=== PATIENT | male | born 1935 | race Caucasian/White ===

== ENCOUNTER 2017-03-24 16:01 | Emergency (ER) | payer MEDICARE, MEDICAID ==
--- NOTE | 2017-03-24 16:25 | EDM.PDOC ---
ED HPI GENERAL MEDICAL PROBLEM - General Chief Complaint: Cardiovascular Problem Stated Complaint: [facility] Time Seen by Provider: 03/24/17 16:19 Source of Information: Reports: Patient History Limitations: Reports: No Limitations - History of Present Illness INITIAL COMMENTS - FREE TEXT/NARRATIVE: 81-year-old male attends the ED per ambulance from [place]. Patient's blood pressure apparently was markedly elevated at home on several occasions today. He states or 4 days ago was in the 130s systolically. Today it's been as high as 205/106. He states no changes in his medications of been made. Multiple checkups today revealed the blood pressure be running around 200 systolically. He denies having a headache or feeling off kilter or balance. No nausea no vomiting. His last blood pressure medicine was changed and August last year when his lisinopril was doubled from 20-41 g per day. He does appreciate a daily chronic cough likely from the lisinopril. Blood pressure on arrival here is 160/85. Onset: Today Onset Date: 03/23/17 (Pressure was noted to be elevated yesterday to much higher than normal in the 175-185 range systolically.) Duration: Hour(s):, Getting Worse Location: Reports: Other (Elevated blood pressure without any other symptoms.) Quality: Reports: Ache, Other (No symptoms.) Severity: Moderate Improves with: Reports: None Worsens with: Reports: None Context: Denies: Activity, Exercise, Lifting, Sick Contact, Trauma, Other Associated Symptoms: Denies: No Other Symptoms, Confusion, Chest Pain, Cough, cough w sputum, Diaphoresis, Fever/Chills, Headaches, Loss of Appetite, Malaise , Nausea/Vomiting, Rash, Seizure, Shortness of Breath, Syncope Treatments MANAGER INTELLIGENCE: Reports: Other (see below) (He has not taken any extra medications.) - Related Data Allergies Allergy/AdvReac Type Severity Reaction Status Date / Time No Known Allergies Allergy Verified 03/24/17 16:04 Home Meds: Home Meds Levothyroxine Sodium [Synthroid] 75 mcg PO DAILY 05/27/16 [History] Metoprolol Tartrate 50 mg PO BID 05/27/16 [History] Omeprazole Magnesium [Prilosec Otc] 20 mg PO DAILY 05/27/16 [History] amLODIPine Besylate [Amlodipine Besylate] 5 mg PO BID 05/27/16 [History] Acetaminophen [Tylenol Extra Strength] 1,000 mg PO TID PRN 08/23/16 [History] Iron Ps Cmplx/Vit B12/Fa [Poly-Iron 150 Forte] 1 cap PO DAILY 08/23/16 [History] Lutein Extract/Zeaxanthin Ext [Lutein 15 MG Softgel] 1 cap PO DAILY 08/23/16 [ History] Methyl Salicylate/Menthol [Thera-Gesic Analgesic] 1 applic TOP BID PRN 08/23/16 [History] Doxazosin Mesylate [Cardura XL] 4 mg PO DAILY #30 tab.er.24 03/24/17 [Rx] Lisinopril [Prinivil] 40 mg PO DAILY 03/24/17 [History] Past Medical History HEENT History: Reports: Impaired Vision Other HEENT History: Has hearing aides but does not wear Cardiovascular History: Reports: Heart Valve Replacement (Aortic valve was replaced I believe in 2003. He did not require any bypasses.), High Cholesterol , Hypertension Gastrointestinal History: Reports: GERD Musculoskeletal History: Reports: Arthritis, Osteoarthritis, Other (See Below) Other Musculoskeletal History: arthritis in shoulders Endocrine/Metabolic History: Reports: Hypothyroidism Hematologic History: Reports: Anemia, Blood Transfusion(s) - Infectious Disease History 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: MRSA - Past Surgical History HEENT Surgical History: Reports: Cataract Surgery Cardiovascular Surgical History: Reports: Other (See Below) GI Surgical History: Reports: Cholecystectomy, Hernia, Inguinal Social & Family History - Family History Family Medical History: Noncontributory Oncologic: Reports: Bladder, Breast, Colon, Other (See Below) - Tobacco Use Smoking Status *Q: Former Smoker Years of Tobacco use: 16 Used Tobacco, but Quit: No Month Tobacco Last Used: 58 yrs Second Hand Smoke Exposure: No - Caffeine Use Caffeine Use: Reports: Coffee - Recreational Drug Use Recreational Drug Use: No - Living Situation & Occupation Living situation: Reports: , with Family ED ROS GENERAL - Review of Systems Review Of Systems: See Below Constitutional: Denies: Fever, Chills, Malaise, Weakness, Fatigue, Night Sweats , Diaphoresis, Decreased Appetite, Weight Loss HEENT: Reports: Glasses, Hearing Loss (Does have some hearing loss but communicates well.). Denies: Contact Lenses Respiratory: Reports: Shortness of Breath, Cough (Has some COPD.). Denies: Wheezing, Pleuritic Chest Pain, Sputum, Hemoptysis ( Chronic nonproductive cough.), Other Cardiovascular: Reports: Blood Pressure Problem (Has chronic hypertension but usually well controlled with current medications.), Dyspnea on Exertion. Denies : No Symptoms, Claudication, Lightheadedness, Orthopnea, Palpitations ( Chronically) Endocrine: Denies: Fatigue, High Glucose, Low Glucose, Polydypsia GI/Abdominal: Reports: Constipation (Occasional problems with constipation). Denies: Abdominal Pain : Reports: Frequency, Other (Known prostate hypertrophy.) Musculoskeletal: Reports: Back Pain, Joint Pain Skin: Reports: No Symptoms (Knees hips and neck.) Neurological: Reports: No Symptoms Psychiatric: Reports: No Symptoms Hematologic/Lymphatic: Reports: No Symptoms Immunologic: Reports: No Symptoms ED EXAM, GENERAL - Physical Exam Exam: See Below Exam Limited By: No Limitations General Appearance: Alert, WD/WN, No Apparent Distress Eye Exam: Bilateral Eye: Normal Inspection, PERRL Throat/Mouth: Normal Inspection, Normal Lips, Normal Oropharynx Head: Atraumatic, Normocephalic Neck: Normal Inspection, Full Range of Motion, Limited Range of Motion, Tender Lateral. No: Lymphadenopathy (L), Lymphadenopathy (R) Respiratory/Chest: No Respiratory Distress, Lungs Clear, Normal Breath Sounds, Decreased Breath Sounds Cardiovascular: Regular Rate, Rhythm, No Gallop, Systolic Murmur (Grade 1 or less systolic ejection murmur heard best at the aortic listening post.). No: Normal Peripheral Pulses GI/Abdominal: Normal Bowel Sounds, Soft, Non-Tender, No Organomegaly, No Distention Extremities: Pedal Edema (Trace edema in his lower extremities.) Neurological: Alert, Oriented ( Pulses are barely palpable in his feet.), CN II- XII Intact, Normal Cognition Psychiatric: Normal Affect, Normal Mood Skin Exam: Warm, Dry, Intact, Normal Color, No Rash Course - Vital Signs Last Recorded V/S: Last Vital Signs Temp 36.4 C 03/24/17 16:04 Pulse 70 03/24/17 18:43 Resp 18 03/24/17 18:43 BP 173/69 H 03/24/17 18:43 Pulse Ox 95 03/24/17 18:43 - Orders/Labs/Meds Labs: Laboratory Tests 03/24/17 03/24/17 Range/Units 16:49 16:49 WBC 6.50 (4.23-9.07) K/mm3 RBC 3.41 L (4.63-6.08) M/mm3 Hgb 10.1 L (13.7-17.5) gm/L Hct 29.5 L (40.1-51.0) % MCV 86.5 (79.0-92.2) fl MCH 29.6 (25.7-32.2) pg MCHC 34.2 (32.2-35.5) g/dl RDW Std Deviation 42.9 (35.1-43.9) fL Plt Count 303 (163-337) K/mm3 MPV 8.3 L (9.4-12.3) fl Neutrophils % (Manual) 83 H (40-60) % Band Neutrophils % 0 (0-10) % Lymphocytes % (Manual) 16 L (20-40) % Atypical Lymphs % 0 % Monocytes % (Manual) 1 L (2-10) % Eosinophils % (Manual) 0 L (0.8-7.0) % Basophils % (Manual) 0 L (0.2-1.2) Platelet Estimate Adequate RBC Morph Comment Normal Sodium 129 L (136-145) mEq/L Potassium 5.2 H (3.5-5.1) mEq/L Chloride 93 L (98-107) mEq/L Carbon Dioxide 24 (21-32) mEq/L Anion Gap 17.2 H (5-15) BUN 22 H (7-18) mg/dL Creatinine 1.5 H (0.7-1.3) mg/dL Est Cr Clr Drug Dosing 34.85 mL/min Estimated GFR (MDRD) 45 (>60) mL/min BUN/Creatinine Ratio 14.7 (14-18) Glucose 110 (83-115) mg/dL Calcium 8.3 L (8.5-10.1) mg/dL Total Bilirubin 0.3 (0.2-1.0) mg/dL AST 19 (15-37) U/L ALT 13 L (16-63) U/L Alkaline Phosphatase 70 (46-116) U/L C-Reactive Protein 5.3 H* (<1.0) mg/dL Total Protein 7.4 (6.4-8.2) g/dl Albumin 3.4 (3.4-5.0) g/dl Globulin 4.0 gm/dL Albumin/Globulin Ratio 0.9 L (1-2) - Radiology Interpretation Free Text/Narrative:: 81-year-old male presents to the ED due to uncontrolled systolic hypertension. His blood pressures been over 205 systolically the last day or 2. However when he arrives here his blood pressure was 160/85. Therefore were going to adopt a wait and see approach heart rate is in the 80s in sinus rhythm. No changes have been recently made to any of his medications. He will have routine lab work done including his renal function. He had tends to run a low hemoglobin. Currently his hemoglobin clinically is probably around 12. - Re-Assessments/Exams Free Text/Narrative Re-Assessment/Exam: 03/24/17 17:21 Blood pressure is quite labile. Currently 180/87 with a pulse of 72. His ECG initially revealed sinus rhythm at 70/m with frequent PACs. There is a borderline left axis deviation at -21 but no signs of ischemia. 03/24/17 18:17 blood pressure is labile highest regard in the ED was up to 184. It is staying on average between 160 02/10/74. Bottom number is staying good below 75 . Looking at his labs his sodium is 129 and potassium is 5.2 chloride 93 bicarbonate 24 and a gap is 17.2 indicating is low on the dry side today the weight is 22 creatinine is 1.5 EGFR is 45. Hemoglobin is 10.1. Total white count 6.50 with 83% neutrophils and no bands. Hematocrit is 29.5 platelets 303, 000. Advised him to back off on the sodium restriction as there quite both him and his are hypo-need treatment. Advised to go to drink more juices and not just water has about 3 cups of coffee per day. Potassium is 5.2 and likely from lisinopril. Therefore going to cut the lisinopril back to 20 mg a day and hopefully this will help his chronic cough if he continues to cough longer than a month and change to a different arm is indicated. Adjust valsartan 160 mg a day. I am going to add doxazosin 4 mg once daily to his treatment plan and have him take the amlodipine 10 mg once daily rather than cutting it in half. I'm hopeful this will start to bring his blood pressure under better control as all of these medications last about 24 hours. He will continue his metoprolol as well. Departure - Departure Time of Disposition: 18:19 Disposition: Home, Self-Care 01 Condition: Fair Clinical Impression: Labile essential hypertension Prescriptions: Doxazosin Mesylate [Cardura XL] 4 mg PO DAILY #30 tab.er.24 Instructions: Hypertension Referrals: Jonatan Dumas PA-C [Primary Care Provider] - Forms: ED Department Discharge Additional Instructions: Evaluation in the emergency room today in regards to labile high blood pressure. This means that the top number particularly is going up and down like a roller coaster. Numbers at home were over 200 in her the highest was 180. On averages between 174 and 164 on the top number which is still a bit too high. Lab work showed the potassium was bit on the high side at 5.2 and this is due to the lisinopril. Lisinopril therefore needs to be cut back to 20 mg once daily. If you have the 40 mg tablets cut them in half and take a half or 1 daily until they're gone and then the new prescription will be for 20 mg daily. Take a full tablet of amlodipine 10 mg at bedtime. Don't cut it in half anymore. No medication is called doxazosin and it should be taken once a day in the morning with your other medications. I will follow with this medication change will help lessen her chronic cough. If the light if the lisinopril cut back does not make her cough go away completely then the lisinopril could be discontinued completely and replaced with a new medication. Continue to follow your blood pressure at home over the next few weeks and follow-up in the clinic in 2 weeks' time. All of today's notes will be sent to the clinic in [place].
[2017-03-24 18:45] VITALS: BP 173/69
== END 2017-03-24 18:43 | disposition home or self-care (01) ==
LOC: JD.ED 16:01
DX: I10 Essential (primary) hypertension (principal); E78.00 Pure hypercholesterolemia, unspecified; K21.9 Gastro-esophageal reflux disease without esophagitis; M19.90 Unspecified osteoarthritis, unspecified site; E03.9 Hypothyroidism, unspecified; D64.9 Anemia, unspecified; Z98.49 Cataract extraction status, unspecified eye; Z90.49 Acquired absence of other specified parts of digestive tract; Z98.890 Other specified postprocedural states; Z79.899 Other long term (current) drug therapy; Z87.891 Personal history of nicotine dependence
CPT/HCPCS: 36415; 80053; 85025; 86140; 93005; 99283; 99284-25

== ENCOUNTER 2019-02-10 19:38 | Emergency (ER) | payer MEDICARE ==
[2019-02-10 19:44] VITALS: BP 180/81
[2019-02-10] MEDS ORDERED: Sodium Chloride 0.9% 10 ML Syringe FLUSH PRN (19:56)
--- NOTE | 2019-02-10 20:04 | EDM.PDOC ---
ED HPI GENERAL MEDICAL PROBLEM - General Chief Complaint: Cardiovascular Problem Stated Complaint: [facility] Time Seen by Provider: 02/10/19 19:43 Source of Information: Reports: Patient, EMS History Limitations: Reports: No Limitations - History of Present Illness INITIAL COMMENTS - FREE TEXT/NARRATIVE: The patient was at home tonight and he was sitting on the edge of his bed changing his clothes. He got up and got dizzy. He sat down in his chair and felt like his heart was racing. He called [facility] and they transferred him here. His heart is not racing anymore and he is not dizzy. He had no chest pain or shortness of breath. He has no fever, chills, cough, congestion, runny nose, abdominal pain, nausea or vomiting He has no dysuria. He had a valve replaced 6 years ago. He has had no problems since then. He has never had a racing heart like this before. Onset: Sudden Duration: Minutes: Severity: Moderate Improves with: Reports: None Worsens with: Reports: None Associated Symptoms: Reports: No Other Symptoms - Related Data Allergies Allergy/AdvReac Type Severity Reaction Status Date / Time No Known Allergies Allergy Verified 02/10/19 19:45 Home Meds: Home Meds Levothyroxine Sodium [Synthroid] 75 mcg PO DAILY 05/27/16 [History] Metoprolol Tartrate 50 mg PO BID 05/27/16 [History] Omeprazole Magnesium [Prilosec Otc] 20 mg PO DAILY 05/27/16 [History] amLODIPine Besylate [Amlodipine Besylate] 5 mg PO BID 05/27/16 [History] Doxazosin Mesylate [Cardura XL] 4 mg PO DAILY #30 tab.er.24 03/24/17 [Rx] Lisinopril/Hydrochlorothiazide [Lisinopril-Hctz 20-25 mg Tab] 1 tab PO DAILY 10/31 [History] Past Medical History HEENT History: Reports: Impaired Vision Other HEENT History: Has hearing aides but does not wear Cardiovascular History: Reports: Heart Valve Replacement, High Cholesterol, Hypertension Gastrointestinal History: Reports: GERD Musculoskeletal History: Reports: Arthritis, Osteoarthritis, Other (See Below) Other Musculoskeletal History: arthritis in shoulders Endocrine/Metabolic History: Reports: Hypothyroidism Hematologic History: Reports: Anemia, Blood Transfusion(s) - Infectious Disease History 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: MRSA - Past Surgical History HEENT Surgical History: Reports: Cataract Surgery Cardiovascular Surgical History: Reports: Other (See Below) GI Surgical History: Reports: Cholecystectomy, Hernia, Inguinal Social & Family History - Family History Family Medical History: Noncontributory Oncologic: Reports: Bladder, Breast, Colon, Other (See Below) - Tobacco Use Smoking Status *Q: Former Smoker Used Tobacco, but Quit: Yes Month/Year Tobacco Last Used: 50 years - Caffeine Use Caffeine Use: Reports: Coffee - Recreational Drug Use Recreational Drug Use: No - Living Situation & Occupation Living situation: Reports: , with Family ED ROS GENERAL - Review of Systems Review Of Systems: See Below Constitutional: Reports: No Symptoms HEENT: Reports: No Symptoms Respiratory: Reports: No Symptoms Cardiovascular: Reports: Palpitations. Denies: Chest Pain Endocrine: Reports: No Symptoms GI/Abdominal: Reports: No Symptoms : Reports: No Symptoms Musculoskeletal: Reports: No Symptoms ED EXAM, GENERAL - Physical Exam Exam: See Below Exam Limited By: No Limitations General Appearance: Alert, No Apparent Distress Ears: Normal External Exam Nose: Normal Inspection Head: Atraumatic, Normocephalic Neck: Normal Inspection Respiratory/Chest: No Respiratory Distress, Lungs Clear, Normal Breath Sounds Cardiovascular: Regular Rate, Rhythm, No Edema, Systolic Murmur GI/Abdominal: Soft, Non-Tender, No Organomegaly, No Mass Back Exam: Normal Inspection Extremities: Normal Inspection Neurological: Alert, Oriented, No Motor/Sensory Deficits EKG INTERPRETATION EKG Date: 02/10/19 Time: 20:07 Rhythm: NSR Rate (Beats/Min): 93 Davis: LAD-Left Davis Deviation P-Wave: Present QRS: Normal ST-T: Normal QT: Normal WV/PQ Interval: 1st degree HB Course - Vital Signs Last Recorded V/S: Last Vital Signs Temp 97.2 F 02/10/19 19:41 Pulse 84 02/10/19 19:41 Resp 18 02/10/19 19:41 BP 180/81 H 02/10/19 19:41 Pulse Ox 98 02/10/19 19:41 - Orders/Labs/Meds Orders: Active Orders 24 hr Category Date Time Status Cardiac Monitoring [RC] . DIRECTED Care 02/10/19 19:56 Active EKG Documentation Completion [RC] STAT Care 02/10/19 19:58 Active Holter Monitor 48 Hours [RC] .PRN Care 02/10/19 21:50 Ordered Peripheral IV Care [RC] . DIRECTED Care 02/10/19 19:58 Active Chest 1V Frontal [CR] Stat Exams 02/10/19 19:58 Taken Sodium Chloride 0.9% [Saline Flush] Med 02/10/19 19:56 Active 10 ml FLUSH ASDIRECTED PRN Peripheral IV Insertion Adult [OM.PC] Stat Oth 02/10/19 19:56 Ordered Medication Orders Sodium Chloride (Saline Flush) 10 ml FLUSH ASDIRECTED PRN PRN Reason: Keep Vein Open Last Admin: 02/10/19 20:20 Dose: 10 ml Labs: Laboratory Tests 02/10/19 02/10/19 Range/Units 20:15 20:15 WBC 5.09 (4.23-9.07) K/mm3 RBC 3.76 L (4.63-6.08) M/mm3 Hgb 11.2 L (13.7-17.5) gm/L Hct 32.0 L (40.1-51.0) % MCV 85.1 (79.0-92.2) fl MCH 29.8 (25.7-32.2) pg MCHC 35.0 (32.2-35.5) g/dl RDW Std Deviation 40.8 (35.1-43.9) fL Plt Count 237 (163-337) K/mm3 MPV 8.2 L (9.4-12.3) fl Neut % (Auto) 79.7 H (34.0-67.9) % Lymph % (Auto) 11.0 L (21.8-53.1) % Dickey % (Auto) 7.5 (5.3-12.2) % Eos % (Auto) 1.6 (0.8-7.0) Baso % (Auto) 0.2 (0.1-1.2) % Neut # (Auto) 4.06 (1.78-5.38) K/mm3 Lymph # (Auto) 0.56 L (1.32-3.57) K/mm3 Dickey # (Auto) 0.38 (0.30-0.82) K/mm3 Eos # (Auto) 0.08 (0.04-0.54) K/mm3 Baso # (Auto) 0.01 (0.01-0.08) K/mm3 Sodium 125 L (136-145) mEq/L Potassium 4.6 (3.5-5.1) mEq/L Chloride 92 L (98-107) mEq/L Carbon Dioxide 22 (21-32) mEq/L Anion Gap 15.6 H (5-15) BUN 26 H (7-18) mg/dL Creatinine 1.8 H (0.7-1.3) mg/dL Est Cr Clr Drug Dosing 28.06 mL/min Estimated GFR (MDRD) 36 (>60) mL/min BUN/Creatinine Ratio 14.4 (14-18) Glucose 114 (83-115) mg/dL Calcium 8.9 (8.5-10.1) mg/dL Total Bilirubin 0.3 (0.2-1.0) mg/dL AST 19 (15-37) U/L ALT 17 (16-63) U/L Alkaline Phosphatase 55 (46-116) U/L Troponin I < 0.017 (0.00-0.056) ng/mL Total Protein 7.3 (6.4-8.2) g/dl Albumin 3.7 (3.4-5.0) g/dl Globulin 3.6 gm/dL Albumin/Globulin Ratio 1.0 (1-2) TSH 3rd Generation 2.458 (0.358-3.74) uIU/mL Meds: Medications Generic Name Dose Route Start Last Admin Trade Name Freq PRN Reason Stop Dose Admin Sodium Chloride 10 ml 02/10/19 19:56 02/10/19 20:20 Saline Flush FLUSH 10 ml ASDIRECTED PRN Administration Keep Vein Open - Re-Assessments/Exams Free Text/Narrative Re-Assessment/Exam: 02/10/19 20:08 I ordered an IV saline lock, CXR, EKG and labs. 02/10/19 21:51 His CXR shows no acute changes. His EKG shows a NSR with no acute changes. His Hgb was a little low at 11.2. His sodium is low at 125 but in the past that is where it has been. His creatinine appears to be at his baseline at 1.8. His troponin was negative. His TSH was normal. I would like to get him on a 48 hour holter monitor and have him follow up with his provider in a week. Departure - Departure Time of Disposition: 21:55 Disposition: Home, Self-Care 01 Condition: Good Clinical Impression: Palpitations, Dizziness Referrals: Jonatan Dumas PA-C [Primary Care Provider] - 1 Week Forms: ED Department Discharge Additional Instructions: Wear the holter monitor for 48 hours. Follow up with Jonatan within a week. Try to give yourself some time when sitting up or standing up before moving. Please return if you are worse. - My Orders Last 24 Hours: My Active Orders 02/10/19 19:56 Cardiac Monitoring [RC] . DIRECTED Sodium Chloride 0.9% [Saline Flush] 10 ml FLUSH ASDIRECTED PRN Peripheral IV Insertion Adult [OM.PC] Stat 02/10/19 19:58 EKG Documentation Completion [RC] STAT Peripheral IV Care [RC] . DIRECTED Chest 1V Frontal [CR] Stat 02/10/19 21:50 Holter Monitor 48 Hours [RC] .PRN - Assessment/Plan Last 24 Hours: My Active Orders 02/10/19 19:56 Cardiac Monitoring [RC] . DIRECTED Sodium Chloride 0.9% [Saline Flush] 10 ml FLUSH ASDIRECTED PRN Peripheral IV Insertion Adult [OM.PC] Stat 02/10/19 19:58 EKG Documentation Completion [RC] STAT Peripheral IV Care [RC] . DIRECTED Chest 1V Frontal [CR] Stat 02/10/19 21:50 Holter Monitor 48 Hours [RC] .PRN
--- NOTE | 2019-02-11 06:45 | CR ---
Chest: Portable view of the chest was obtained. Comparison: Prior chest x-ray of 06/27/16. Heart size slightly prominent. Sternotomy wires are noted. Prosthetic heart valve is seen. Minimal atelectasis is seen within both lung bases. Lungs otherwise are clear. Bony structures are grossly intact. Impression: 1. Incidental findings as noted above. Nothing acute is seen. Diagnostic code #2
== END 2019-02-10 22:06 | disposition home or self-care (01) ==
LOC: JD.ED 19:38
DX: R00.2 Palpitations (principal); R42 Dizziness and giddiness; I10 Essential (primary) hypertension; K21.9 Gastro-esophageal reflux disease without esophagitis; E03.9 Hypothyroidism, unspecified; Z86.2 Personal history of diseases of the blood and blood-forming organs and certain disorders involving the immune mechanism; Z98.49 Cataract extraction status, unspecified eye; Z90.49 Acquired absence of other specified parts of digestive tract; Z79.899 Other long term (current) drug therapy; Z87.891 Personal history of nicotine dependence
CPT/HCPCS: 36415; 71045; 71045-26; 80053; 84443; 84484; 85025; 93005; 93010; 99283; 99285-25

== ENCOUNTER 2019-07-16 19:39 | Inpatient (IN) | payer MEDICARE, OTHER ==
[2019-07-16] MEDS ORDERED: Sodium Chloride 0.9% 10 ML Syringe FLUSH PRN (19:48)
--- NOTE | 2019-07-16 20:12 | EDM.PDOC ---
ED HPI GENERAL MEDICAL PROBLEM - General Chief Complaint: General Stated Complaint: [facility] Time Seen by Provider: 07/16/19 19:48 Source of Information: Reports: Patient, EMS History Limitations: Reports: No Limitations - History of Present Illness INITIAL COMMENTS - FREE TEXT/NARRATIVE: 84 y/o M with hx porcine aortic valve replacement in 2013, not on any anticoagulation, also HTN presents with episode of dizziness and aphasia. Started around 6:30pm while eating dinner with his . He suddenly felt dizzy and couldn't speak. He did not have LOC. He was able to walk with assistance to a walker. Symptoms resolved after 5 minutes. He felt fine before the incident - no recent illness or trauma. He feels normal now. No chest pain, SOB, headache, palpitations, or other symptoms today. No vision change. No longer dizzy. No weakness. No abd pain/vomiting/diarrhea. No dysuria. No lower extremity pain/ swelling. Has been compliant with his meds. Other Treatments WASTE [employer]: monitor of vital per ambulance Posterior Neck Pain Score (Numeric/FACES): 3 - Related Data Allergies Allergy/AdvReac Type Severity Reaction Status Date / Time No Known Allergies Allergy Verified 02/10/19 19:45 Home Meds: Home Meds Levothyroxine Sodium [Synthroid] 75 mcg PO DAILY 05/27/16 [History] Metoprolol Tartrate 50 mg PO BID 05/27/16 [History] Omeprazole Magnesium [Prilosec Otc] 20 mg PO DAILY 05/27/16 [History] amLODIPine Besylate [Amlodipine Besylate] 5 mg PO BID 05/27/16 [History] Doxazosin Mesylate [Cardura XL] 4 mg PO DAILY #30 tab.er.24 03/24/17 [Rx] Lisinopril 10 mg PO DAILY 07/16/19 [History] Past Medical History HEENT History: Reports: Impaired Vision Other HEENT History: Has hearing aides but does not wear Cardiovascular History: Reports: Heart Valve Replacement, High Cholesterol, Hypertension Gastrointestinal History: Reports: GERD Musculoskeletal History: Reports: Arthritis, Osteoarthritis, Other (See Below) Other Musculoskeletal History: arthritis in shoulders Endocrine/Metabolic History: Reports: Hypothyroidism Hematologic History: Reports: Anemia, Blood Transfusion(s) - Infectious Disease History 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: MRSA - Past Surgical History HEENT Surgical History: Reports: Cataract Surgery Cardiovascular Surgical History: Reports: Valve Replacement, Other (See Below) GI Surgical History: Reports: Cholecystectomy, Hernia, Inguinal Social & Family History - Family History Family Medical History: Noncontributory Oncologic: Reports: Bladder, Breast, Colon, Other (See Below) - Tobacco Use Smoking Status *Q: Former Smoker Used Tobacco, but Quit: Yes Month/Year Tobacco Last Used: 1967 - Caffeine Use Caffeine Use: Reports: Coffee, Soda - Recreational Drug Use Recreational Drug Use: No - Living Situation & Occupation Living situation: Reports: , with Family ED ROS GENERAL - Review of Systems Review Of Systems: See Below Constitutional: Denies: Fever HEENT: Reports: No Symptoms Respiratory: Denies: Shortness of Breath Cardiovascular: Denies: Chest Pain Endocrine: Reports: No Symptoms GI/Abdominal: Denies: Abdominal Pain : Reports: No Symptoms Musculoskeletal: Reports: No Symptoms Skin: Reports: No Symptoms Neurological: Reports: Dizziness Psychiatric: Reports: No Symptoms Hematologic/Lymphatic: Reports: No Symptoms Immunologic: Reports: No Symptoms ED EXAM, GENERAL - Physical Exam Exam: See Below Exam Limited By: No Limitations General Appearance: Alert, WD/WN, No Apparent Distress Eye Exam: Bilateral Eye: EOMI, Normal Inspection, PERRL, Other (no nystagmus.) Ears: Normal External Exam, Hearing Grossly Normal Nose: Normal Inspection, No Blood Throat/Mouth: Normal Inspection, Normal Oropharynx, Normal Voice, No Airway Compromise Head: Atraumatic, Normocephalic Neck: Normal Inspection, Supple Respiratory/Chest: No Respiratory Distress, Lungs Clear, Normal Breath Sounds, No Accessory Muscle Use Cardiovascular: Normal Peripheral Pulses, No Edema, No Murmur, Irregularly Irregular GI/Abdominal: Soft, Non-Tender, No Distention Extremities: Normal Inspection, No Pedal Edema Neurological: Alert, Oriented, CN II-XII Intact, Normal Cognition, No Motor/ Sensory Deficits Psychiatric: Normal Affect, Normal Mood Skin Exam: Warm, Dry, Intact, Normal Color, No Rash Course - Vital Signs Last Recorded V/S: Last Vital Signs Temp 36.3 C 07/16/19 19:44 Pulse 102 H 07/16/19 19:44 Resp 18 07/16/19 19:44 BP 178/89 H 07/16/19 19:44 Pulse Ox 97 07/16/19 19:44 - Orders/Labs/Meds Orders: Active Orders 24 hr Category Date Time Status Peripheral IV Care [RC] . DIRECTED Care 07/16/19 19:48 Active Peripheral IV Care [RC] . DIRECTED Care 07/16/19 19:49 Active Chest 1V Frontal [CR] Stat Exams 07/16/19 19:48 Taken Sodium Chloride 0.9% [Saline Flush] Med 07/16/19 19:48 Active 10 ml FLUSH ASDIRECTED PRN Peripheral IV Insertion Adult [OM.PC] Routine Oth 07/16/19 19:48 Ordered Medication Orders Sodium Chloride (Saline Flush) 10 ml FLUSH ASDIRECTED PRN PRN Reason: Keep Vein Open Last Admin: 07/16/19 20:00 Dose: 10 ml Labs: Laboratory Tests 07/16/19 07/16/19 07/16/19 Range/Units 19:55 19:55 19:55 WBC 6.04 (4.23-9.07) K/mm3 RBC 3.80 L (4.63-6.08) M/mm3 Hgb 12.1 L D (13.7-17.5) gm/dl Hct 34.2 L (40.1-51.0) % MCV 90.0 (79.0-92.2) fl MCH 31.8 (25.7-32.2) pg MCHC 35.4 (32.2-35.5) g/dl RDW Std Deviation 41.7 (35.1-43.9) fL Plt Count 214 (163-337) K/mm3 MPV 8.6 L (9.4-12.3) fl Neut % (Auto) 79.2 H (34.0-67.9) % Lymph % (Auto) 10.3 L (21.8-53.1) % [place] % (Auto) 7.3 (5.3-12.2) % Eos % (Auto) 3.0 (0.8-7.0) Baso % (Auto) 0.2 (0.1-1.2) % Neut # (Auto) 4.79 (1.78-5.38) K/mm3 Lymph # (Auto) 0.62 L (1.32-3.57) K/mm3 [place] # (Auto) 0.44 (0.30-0.82) K/mm3 Eos # (Auto) 0.18 (0.04-0.54) K/mm3 Baso # (Auto) 0.01 (0.01-0.08) K/mm3 PT 10.5 (9.7-12.0) SECONDS INR 0.96 Sodium 130 L (136-145) mEq/L Potassium 4.3 (3.5-5.1) mEq/L Chloride 97 L (98-107) mEq/L Carbon Dioxide 26 (21-32) mEq/L Anion Gap 11.3 (5-15) BUN 22 H (7-18) mg/dL Creatinine 1.5 H (0.7-1.3) mg/dL Est Cr Clr Drug Dosing 33.08 mL/min Estimated GFR (MDRD) 45 (>60) mL/min BUN/Creatinine Ratio 14.7 (14-18) Glucose 124 H (83-115) mg/dL Calcium 9.0 (8.5-10.1) mg/dL Magnesium 1.8 (1.8-2.4) mg/dl Total Bilirubin 0.2 (0.2-1.0) mg/dL AST 13 L (15-37) U/L ALT 17 (16-63) U/L Alkaline Phosphatase 59 (46-116) U/L Troponin I < 0.017 (0.00-0.056) ng/mL Total Protein 7.3 (6.4-8.2) g/dl Albumin 3.6 (3.4-5.0) g/dl Globulin 3.7 gm/dL Albumin/Globulin Ratio 1.0 (1-2) Urine Color (Yellow) Urine Appearance (Clear) Urine pH (5.0-8.0) Ur Specific [place] (1.005-1.030) Urine Protein (Negative) Urine Glucose (UA) (Negative) Urine Ketones (Negative) Urine Occult Blood (Negative) Urine Nitrite (Negative) Urine Bilirubin (Negative) Urine Urobilinogen (0.2-1.0) Ur Leukocyte Esterase (Negative) Urine RBC (0-5) /hpf Urine WBC (0-5) /hpf Ur Squamous Epith Cells (0-5) /hpf Urine Bacteria (FEW) /hpf Urine Mucus (FEW) /hpf 07/16/19 Range/Units 20:45 WBC (4.23-9.07) K/mm3 RBC (4.63-6.08) M/mm3 Hgb (13.7-17.5) gm/dl Hct (40.1-51.0) % MCV (79.0-92.2) fl MCH (25.7-32.2) pg MCHC (32.2-35.5) g/dl RDW Std Deviation (35.1-43.9) fL Plt Count (163-337) K/mm3 MPV (9.4-12.3) fl Neut % (Auto) (34.0-67.9) % Lymph % (Auto) (21.8-53.1) % [place] % (Auto) (5.3-12.2) % Eos % (Auto) (0.8-7.0) Baso % (Auto) (0.1-1.2) % Neut # (Auto) (1.78-5.38) K/mm3 Lymph # (Auto) (1.32-3.57) K/mm3 [place] # (Auto) (0.30-0.82) K/mm3 Eos # (Auto) (0.04-0.54) K/mm3 Baso # (Auto) (0.01-0.08) K/mm3 PT (9.7-12.0) SECONDS INR Sodium (136-145) mEq/L Potassium (3.5-5.1) mEq/L Chloride (98-107) mEq/L Carbon Dioxide (21-32) mEq/L Anion Gap (5-15) BUN (7-18) mg/dL Creatinine (0.7-1.3) mg/dL Est Cr Clr Drug Dosing mL/min Estimated GFR (MDRD) (>60) mL/min BUN/Creatinine Ratio (14-18) Glucose (83-115) mg/dL Calcium (8.5-10.1) mg/dL Magnesium (1.8-2.4) mg/dl Total Bilirubin (0.2-1.0) mg/dL AST (15-37) U/L ALT (16-63) U/L Alkaline Phosphatase (46-116) U/L Troponin I (0.00-0.056) ng/mL Total Protein (6.4-8.2) g/dl Albumin (3.4-5.0) g/dl Globulin gm/dL Albumin/Globulin Ratio (1-2) Urine Color Yellow (Yellow) Urine Appearance Clear (Clear) Urine pH 7.0 (5.0-8.0) Ur Specific [place] 1.015 (1.005-1.030) Urine Protein Negative (Negative) Urine Glucose (UA) Negative (Negative) Urine Ketones Negative (Negative) Urine Occult Blood 2+ H (Negative) Urine Nitrite Negative (Negative) Urine Bilirubin Negative (Negative) Urine Urobilinogen 0.2 (0.2-1.0) Ur Leukocyte Esterase 1+ H (Negative) Urine RBC 5-10 H (0-5) /hpf Urine WBC 0-5 (0-5) /hpf Ur Squamous Epith Cells 0-5 (0-5) /hpf Urine Bacteria Few (FEW) /hpf Urine Mucus Not seen (FEW) /hpf Meds: Medications Generic Name Dose Route Start Last Admin Trade Name Freq PRN Reason Stop Dose Admin Sodium Chloride 10 ml 07/16/19 19:48 07/16/19 20:00 Saline Flush FLUSH 10 ml ASDIRECTED PRN Administration Keep Vein Open Discontinued Medications Generic Name Dose Route Start Last Admin Trade Name Freq PRN Reason Stop Dose Admin Amlodipine Besylate 5 mg 07/16/19 23:15 Norvasc PO 07/16/19 23:16 ONETIME ONE Doxazosin Mesylate 4 mg 07/16/19 23:30 Cardura PO 07/16/19 23:31 BEDTIME ONE Metoprolol Tartrate 50 mg 07/16/19 23:30 Lopressor PO 07/16/19 23:31 ONETIME ONE - Re-Assessments/Exams Free Text/Narrative Re-Assessment/Exam: 07/16/19 20:11 EKG shows a-fib, rate 94, intervals normal, minimal ST depression anteriolateral leads, no ST elevation. No recent prior available for comparison. 07/17/19 00:42 Labs are largely unremarkable. Sodium 130, baseline unknown. Trop neg. LFT's normal. Discussed with Dr. Roshan Friend who agrees to admit for observation given possible TIA and new onset a-fib. Will give evening dose of anti-hypertensives which includes metoprolol. His rate has been controlled without intervention. Departure - Departure Time of Disposition: 09:45 Disposition: Refer to Observation Clinical Impression: TIA (transient ischemic attack) Atrial fibrillation Qualifiers: Atrial fibrillation type: unspecified Qualified Code(s): I48.91 - Unspecified atrial fibrillation - Discharge Information - My Orders Last 24 Hours: My Active Orders 07/16/19 19:48 Peripheral IV Care [RC] . DIRECTED Chest 1V Frontal [CR] Stat Sodium Chloride 0.9% [Saline Flush] 10 ml FLUSH ASDIRECTED PRN Peripheral IV Insertion Adult [OM.PC] Routine 07/16/19 19:49 Peripheral IV Care [RC] . DIRECTED - Assessment/Plan Last 24 Hours: My Active Orders 07/16/19 19:48 Peripheral IV Care [RC] . DIRECTED Chest 1V Frontal [CR] Stat Sodium Chloride 0.9% [Saline Flush] 10 ml FLUSH ASDIRECTED PRN Peripheral IV Insertion Adult [OM.PC] Routine 07/16/19 19:49 Peripheral IV Care [RC] . DIRECTED
--- NOTE | 2019-07-16 20:50 | CT ---
Head CT Technique: Multiple axial sections through the brain were obtained. Intravenous contrast was not utilized. Comparison: No prior intracranial imaging is available. Findings: Ventricles along with basal cisterns and sulci over the convexities are mildly prominent. Diminished density is noted within the periventricular and subcortical white matter which most likely represents small vessel ischemic demyelination change. No other abnormal parenchymal densities are appreciated. Atherosclerotic calcification is noted within the vertebral vessels and carotid siphon. No midline shift or mass effect is seen. Bone window settings were reviewed which shows mild mucosal thickening within the right maxillary sinus as well as sphenoid and ethmoid sinuses. No acute calvarial abnormality is appreciated. Visualized mastoid sinuses are also clear. Impression: 1. Senescent change as described above. 2. Mild sinus findings which are most likely chronic. 3. Nothing acute is appreciated on noncontrast head CT exam. Diagnostic code #2
[2019-07-16] MEDS ORDERED: Metoprolol Tartrate 50 MG Tab PO ONE (20:59)
[2019-07-16] MEDS ORDERED: amLODIPine 5 MG Tab PO ONE (20:59)
[2019-07-16] MEDS ORDERED: Doxazosin 4 MG Tab**OWN MED PO ONE ×2 (23:15→23:30)
[2019-07-16] MEDS ORDERED: amLODIPine 5 MG Tab**OWN MED PO ONE (23:15)
[2019-07-16] MEDS ORDERED: Metoprolol Tartrate 50 MG Tab**OWN MED PO ONE (23:30)
--- NOTE | 2019-07-17 07:45 | PCM.HP.2 ---
H&P History of Present Illness - General Date of Service: 07/16/19 Admit Problem/Dx: Admission Diagnosis/Problem Admission Diagnosis/Problem TIA, Transient ischemic attack - History of Present Illness Initial Comments - Free Text/Narative: This is an 84-year-old M with past medical history of HTN and hypothyroidism who comes to the ED brought by family members complaining of sudden onset lightheadedness, confusion, aphasia and blurry vision for 2 minutes. As per patient he was having supper around 6:15PM when he suddenly developed dizziness, difficulty speaking and blurry vision that lasted a 2-3 minutes. His hen called his neighbor who came to help him into his recliner, at that time he was feeling BL leg weakness and difficulty walking. All symptoms resolved spontaneously prior to ED consultation He denies any headaches, LOC, numbness or tingling, facial droop, involuntary movements, bowel or urinary incontinence No alleviating or worsening factors. Symptom Onset Date: 07/16/19 Symptom Onset Time: 18:15 Duration of Symptoms: Reports: Minutes: (2) Posterior Neck Pain Score (Numeric/FACES): 3 - Related Data Allergies/Adverse Reactions: Allergies Allergy/AdvReac Type Severity Reaction Status Date / Time No Known Allergies Allergy Verified 07/17/19 02:51 Home Medications: Home Meds Levothyroxine Sodium [Synthroid] 75 mcg PO DAILY 05/27/16 [History] Metoprolol Tartrate 50 mg PO BID 05/27/16 [History] Omeprazole Magnesium [Prilosec Otc] 20 mg PO DAILY 05/27/16 [History] amLODIPine Besylate [Amlodipine Besylate] 5 mg PO BID 05/27/16 [History] Doxazosin Mesylate [Cardura XL] 4 mg PO DAILY #30 tab.er.24 03/24/17 [Rx] Lisinopril 10 mg PO DAILY 07/16/19 [History] Past Medical History HEENT History: Reports: Impaired Vision Other HEENT History: Has hearing aides but does not wear Cardiovascular History: Reports: Heart Valve Replacement, High Cholesterol, Hypertension Gastrointestinal History: Reports: GERD Musculoskeletal History: Reports: Arthritis, Osteoarthritis, Other (See Below) Other Musculoskeletal History: arthritis in shoulders Neurological History: Reports: TIA Endocrine/Metabolic History: Reports: Hypothyroidism Hematologic History: Reports: Anemia, Blood Transfusion(s) - Infectious Disease History 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: MRSA - Past Surgical History HEENT Surgical History: Reports: Cataract Surgery Cardiovascular Surgical History: Reports: Valve Replacement, Other (See Below) GI Surgical History: Reports: Cholecystectomy, Hernia, Inguinal Social & Family History - Family History Family Medical History: Noncontributory Oncologic: Reports: Bladder, Breast, Colon, Other (See Below) - Tobacco Use Smoking Status *Q: Former Smoker Used Tobacco, but Quit: Yes Month/Year Tobacco Last Used: 1967 Second Hand Smoke Exposure: No - Caffeine Use Caffeine Use: Reports: Coffee, Soda Other Caffeine Use: drinks about 3 cups of coffee every day - Recreational Drug Use Recreational Drug Use: No - Living Situation & Occupation Living situation: Reports: , with Family H&P Review of Systems - Review of Systems: Review Of Systems: See Below General: Reports: Weakness HEENT: Reports: Visual Changes Cardiovascular: Reports: Lightheadedness Gastrointestinal: Reports: No Symptoms Genitourinary: Reports: No Symptoms Musculoskeletal: Reports: Other (BL LE weakness) Skin: Reports: No Symptoms Psychiatric: Reports: Confusion Neurological: Reports: Confusion, Dizziness, Difficulty Walking Exam - Exam Exam: See Below - Vital Signs Vital Signs: Last Vital Signs Temp 36.8 C 07/17/19 04:49 Pulse 71 07/17/19 05:18 Resp 19 07/17/19 04:49 BP 165/97 H 07/17/19 05:18 Pulse Ox 96 07/17/19 04:49 Weight: 88.269 kg - Exam General: Alert, Oriented, Cooperative HEENT: Conjunctiva Clear, EOMI, Mucosa Moist & [place], Nares Patent, Normal Nasal Septum, Posterior Pharynx Clear, Pupils Equal, Pupils Reactive, PERRLA Neck: Supple, Trachea Midline Lungs: Clear to Auscultation, Normal Respiratory Effort Cardiovascular: Regular Rate, Regular Rhythm GI/Abdominal Exam: Normal Bowel Sounds, Soft, Non-Tender, No Organomegaly, No Distention, No Mass Extremities: Normal Inspection, Normal Range of Motion, No Pedal Edema, Normal Capillary Refill Skin: Warm, Intact Neuro Extensive - Mental Status: Alert, Oriented x3, Normal Mood/Affect, Nl Response to Commands Neuro Extensive - Motor, Sensory, Reflexes: CN II-XII Intact Psychiatric: Alert - Patient Data Lab Results Last 24 hrs: Laboratory Results - last 24 hr 10/01/2907/16/19 07/16/19 Range/Units 19:55 19:55 19:55 WBC 6.04 (4.23-9.07) K/mm3 RBC 3.80 L (4.63-6.08) M/mm3 Hgb 12.1 L D (13.7-17.5) gm/dl Hct 34.2 L (40.1-51.0) % MCV 90.0 (79.0-92.2) fl MCH 31.8 (25.7-32.2) pg MCHC 35.4 (32.2-35.5) g/dl RDW Std Deviation 41.7 (35.1-43.9) fL Plt Count 214 (163-337) K/mm3 MPV 8.6 L (9.4-12.3) fl Neut % (Auto) 79.2 H (34.0-67.9) % Lymph % (Auto) 10.3 L (21.8-53.1) % [place] % (Auto) 7.3 (5.3-12.2) % Eos % (Auto) 3.0 (0.8-7.0) Baso % (Auto) 0.2 (0.1-1.2) % Neut # (Auto) 4.79 (1.78-5.38) K/mm3 Lymph # (Auto) 0.62 L (1.32-3.57) K/mm3 [place] # (Auto) 0.44 (0.30-0.82) K/mm3 Eos # (Auto) 0.18 (0.04-0.54) K/mm3 Baso # (Auto) 0.01 (0.01-0.08) K/mm3 PT 10.5 (9.7-12.0) SECONDS INR 0.96 Sodium 130 L (136-145) mEq/L Potassium 4.3 (3.5-5.1) mEq/L Chloride 97 L (98-107) mEq/L Carbon Dioxide 26 (21-32) mEq/L Anion Gap 11.3 (5-15) BUN 22 H (7-18) mg/dL Creatinine 1.5 H (0.7-1.3) mg/dL Est Cr Clr Drug Dosing 33.08 mL/min Estimated GFR (MDRD) 45 (>60) mL/min BUN/Creatinine Ratio 14.7 (14-18) Glucose 124 H (83-115) mg/dL Calcium 9.0 (8.5-10.1) mg/dL Magnesium 1.8 (1.8-2.4) mg/dl Total Bilirubin 0.2 (0.2-1.0) mg/dL AST 13 L (15-37) U/L ALT 17 (16-63) U/L Alkaline Phosphatase 59 (46-116) U/L Troponin I < 0.017 (0.00-0.056) ng/mL Total Protein 7.3 (6.4-8.2) g/dl Albumin 3.6 (3.4-5.0) g/dl Globulin 3.7 gm/dL Albumin/Globulin Ratio 1.0 (1-2) Urine Color (Yellow) Urine Appearance (Clear) Urine pH (5.0-8.0) Ur Specific [place] (1.005-1.030) Urine Protein (Negative) Urine Glucose (UA) (Negative) Urine Ketones (Negative) Urine Occult Blood (Negative) Urine Nitrite (Negative) Urine Bilirubin (Negative) Urine Urobilinogen (0.2-1.0) Ur Leukocyte Esterase (Negative) Urine RBC (0-5) /hpf Urine WBC (0-5) /hpf Ur Squamous Epith Cells (0-5) /hpf Urine Bacteria (FEW) /hpf Urine Mucus (FEW) /hpf MRSA (PCR) 07/16/19 07/16/19 Range/Units 20:45 23:16 WBC (4.23-9.07) K/mm3 RBC (4.63-6.08) M/mm3 Hgb (13.7-17.5) gm/dl Hct (40.1-51.0) % MCV (79.0-92.2) fl MCH (25.7-32.2) pg MCHC (32.2-35.5) g/dl RDW Std Deviation (35.1-43.9) fL Plt Count (163-337) K/mm3 MPV (9.4-12.3) fl Neut % (Auto) (34.0-67.9) % Lymph % (Auto) (21.8-53.1) % [place] % (Auto) (5.3-12.2) % Eos % (Auto) (0.8-7.0) Baso % (Auto) (0.1-1.2) % Neut # (Auto) (1.78-5.38) K/mm3 Lymph # (Auto) (1.32-3.57) K/mm3 [place] # (Auto) (0.30-0.82) K/mm3 Eos # (Auto) (0.04-0.54) K/mm3 Baso # (Auto) (0.01-0.08) K/mm3 PT (9.7-12.0) SECONDS INR Sodium (136-145) mEq/L Potassium (3.5-5.1) mEq/L Chloride (98-107) mEq/L Carbon Dioxide (21-32) mEq/L Anion Gap (5-15) BUN (7-18) mg/dL Creatinine (0.7-1.3) mg/dL Est Cr Clr Drug Dosing mL/min Estimated GFR (MDRD) (>60) mL/min BUN/Creatinine Ratio (14-18) Glucose (83-115) mg/dL Calcium (8.5-10.1) mg/dL Magnesium (1.8-2.4) mg/dl Total Bilirubin (0.2-1.0) mg/dL AST (15-37) U/L ALT (16-63) U/L Alkaline Phosphatase (46-116) U/L Troponin I (0.00-0.056) ng/mL Total Protein (6.4-8.2) g/dl Albumin (3.4-5.0) g/dl Globulin gm/dL Albumin/Globulin Ratio (1-2) Urine Color Yellow (Yellow) Urine Appearance Clear (Clear) Urine pH 7.0 (5.0-8.0) Ur Specific [place] 1.015 (1.005-1.030) Urine Protein Negative (Negative) Urine Glucose (UA) Negative (Negative) Urine Ketones Negative (Negative) Urine Occult Blood 2+ H (Negative) Urine Nitrite Negative (Negative) Urine Bilirubin Negative (Negative) Urine Urobilinogen 0.2 (0.2-1.0) Ur Leukocyte Esterase 1+ H (Negative) Urine RBC 5-10 H (0-5) /hpf Urine WBC 0-5 (0-5) /hpf Ur Squamous Epith Cells 0-5 (0-5) /hpf Urine Bacteria Few (FEW) /hpf Urine Mucus Not seen (FEW) /hpf MRSA (PCR) Negative Result Diagrams: 07/17/19 08:24 07/17/19 08:24 EKG INTERPRETATION EKG Date: 07/16/19 - Problem List (1) TIA (transient ischemic attack) SNOMED Code(s): 068089155 ICD Code: G45.9 - TRANSIENT CEREBRAL ISCHEMIC ATTACK, UNSPECIFIED Status: Acute Current Visit: Yes (2) Hypertension SNOMED Code(s): 24284761 ICD Code: I10 - ESSENTIAL (PRIMARY) HYPERTENSION Status: Acute Current Visit: Yes (3) Chronic hyponatremia SNOMED Code(s): 98931736 ICD Code: E87.1 - HYPO-OSMOLALITY AND HYPONATREMIA Status: Acute Current Visit: Yes (4) Chronic kidney disease (CKD) stage G3b/A1, moderately decreased glomerular filtration rate (GFR) between 30-44 mL/min/1.73 square meter and albuminuria creatinine ratio less than 30 mg/g SNOMED Code(s): 559520939, 020651573 ICD Code: N18.3 - CHRONIC KIDNEY DISEASE, STAGE 3 (MODERATE) Status: Acute Current Visit: Yes (5) Normocytic normochromic anemia SNOMED Code(s): 37335722 ICD Code: D64.9 - ANEMIA, UNSPECIFIED Status: Acute Current Visit: Yes (6) Lymphopenia SNOMED Code(s): 02633414 ICD Code: D72.810 - LYMPHOCYTOPENIA Status: Acute Current Visit: Yes (7) Hypothyroidism SNOMED Code(s): 61521568 ICD Code: E03.9 - HYPOTHYROIDISM, UNSPECIFIED Status: Acute Current Visit : Yes Problem List Initiated/Reviewed/Updated: Yes Orders Last 24hrs: ASSESSMENT AND PLAN This is an 84-year-old with past medical history of HTN and hypothyroidism who came to the ED with symptoms of TIA. Transient ischemic attack Last known well : 6:15 PM (07/16/2019) NIH on admission 0; 0 on my evaluation No obvious etiology PLAN - Order CTA head and neck - Order Echocardiogram - Order lipid panel and HbA1c - Start atorvastatin 40mg and daily ASA 325mg - Continuous cardiac monitoring - NIH scale every 4 hours for now - Bedside swallow evaluation - PT/OT evaluation - Case management and social worker health services evaluation for placement as per PT/OT recommendations Hypertension BP on admission 179/89 (118) Home management with lisinopril, amlodipine and metoprolol PLAN - Permissive HTN for 48 hours - Hold all home medications for now - PRN metoprolol Chronic Kidney Disease, Stage IIIB (GFR-45) Likely 2/2 chronic HTN PLAN - Monitor urine output - Renally dosed medications - Sport urine protein and creatinine Chronic hyponatremia, stable Na on admission 132 No replacement for now PLAN - Urine Na, K, Cl, Cr and BUN Normocytic normochromic anemia, stable No signs of acute bleeding PLAN - Monitor for blood loss - Order peripheral blood smear, iron panel, vitamin B12 and folic acid Lymphopenia Stable from previous admission No previous work-up PLAN -Peripheral blood smear ordered Hypothyroidism Home management with levothyroxine PLAN -Continue home levothyroxine PROPHYLAXIS DVT- Lovenox 40mg SQ q12h GI- not indicated ANCILLARY: Pending PT, OT, speech, case management and social psychologist evaluations CODE STATUS: FULL CODE DISPOSITION: Discharge depending on recommendations by PT and OT to be facilitated by social psychologist and case management, discharge unlikely until friday whe echocardiogram and speech therapy evaluation will be performed.
--- NOTE | 2019-07-17 07:46 | PCM.PN ---
- General Info Date of Service: 07/17/19 - Review of Systems General: Denies: Weakness HEENT: Reports: No Symptoms Pulmonary: Reports: No Symptoms Cardiovascular: Reports: No Symptoms Gastrointestinal: Reports: No Symptoms Genitourinary: Reports: No Symptoms Musculoskeletal: Reports: No Symptoms Skin: Reports: No Symptoms Neurological: Denies: Confusion, Dizziness, Headache, Numbness, Paresthesia, Tingling, Tremors, Difficulty Walking, Weakness, Change in Speech, Gait Disturbance Psychiatric: Denies: Confusion, Depression, Anxiety - Patient Data Vitals - Most Recent: Last Vital Signs Temp 36.8 C 07/17/19 04:49 Pulse 71 07/17/19 05:18 Resp 19 07/17/19 04:49 BP 165/97 H 07/17/19 05:18 Pulse Ox 96 07/17/19 04:49 Weight - Most Recent: 88.269 kg I&O - Last 24 Hours: Intake & Output 07/16/19 07/17/19 07/17/19 22:59 06:59 14:59 Intake Total 100 Output Total 950 Balance -850 Lab Results Last 24 Hours: Laboratory Results - last 24 hr 07/16/19 07/16/19 07/16/19 Range/Units 19:55 19:55 19:55 WBC 6.04 (4.23-9.07) K/mm3 RBC 3.80 L (4.63-6.08) M/mm3 Hgb 12.1 L D (13.7-17.5) gm/dl Hct 34.2 L (40.1-51.0) % MCV 90.0 (79.0-92.2) fl MCH 31.8 (25.7-32.2) pg MCHC 35.4 (32.2-35.5) g/dl RDW Std Deviation 41.7 (35.1-43.9) fL Plt Count 214 (163-337) K/mm3 MPV 8.6 L (9.4-12.3) fl Neut % (Auto) 79.2 H (34.0-67.9) % Lymph % (Auto) 10.3 L (21.8-53.1) % [place] % (Auto) 7.3 (5.3-12.2) % Eos % (Auto) 3.0 (0.8-7.0) Baso % (Auto) 0.2 (0.1-1.2) % Neut # (Auto) 4.79 (1.78-5.38) K/mm3 Lymph # (Auto) 0.62 L (1.32-3.57) K/mm3 [place]ner # (Auto) 0.44 (0.30-0.82) K/mm3 Eos # (Auto) 0.18 (0.04-0.54) K/mm3 Baso # (Auto) 0.01 (0.01-0.08) K/mm3 PT 10.5 (9.7-12.0) SECONDS INR 0.96 Sodium 130 L (136-145) mEq/L Potassium 4.3 (3.5-5.1) mEq/L Chloride 97 L (98-107) mEq/L Carbon Dioxide 26 (21-32) mEq/L Anion Gap 11.3 (5-15) BUN 22 H (7-18) mg/dL Creatinine 1.5 H (0.7-1.3) mg/dL Est Cr Clr Drug Dosing 33.08 mL/min Estimated GFR (MDRD) 45 (>60) mL/min BUN/Creatinine Ratio 14.7 (14-18) Glucose 124 H (83-115) mg/dL Calcium 9.0 (8.5-10.1) mg/dL Magnesium 1.8 (1.8-2.4) mg/dl Total Bilirubin 0.2 (0.2-1.0) mg/dL AST 13 L (15-37) U/L ALT 17 (16-63) U/L Alkaline Phosphatase 59 (46-116) U/L Troponin I < 0.017 (0.00-0.056) ng/mL Total Protein 7.3 (6.4-8.2) g/dl Albumin 3.6 (3.4-5.0) g/dl Globulin 3.7 gm/dL Albumin/Globulin Ratio 1.0 (1-2) Urine Color (Yellow) Urine Appearance (Clear) Urine pH (5.0-8.0) Ur Specific [place] (1.005-1.030) Urine Protein (Negative) Urine Glucose (UA) (Negative) Urine Ketones (Negative) Urine Occult Blood (Negative) Urine Nitrite (Negative) Urine Bilirubin (Negative) Urine Urobilinogen (0.2-1.0) Ur Leukocyte Esterase (Negative) Urine RBC (0-5) /hpf Urine WBC (0-5) /hpf Ur Squamous Epith Cells (0-5) /hpf Urine Bacteria (FEW) /hpf Urine Mucus (FEW) /hpf MRSA (PCR) 07/16/19 07/16/19 Range/Units 20:45 23:16 WBC (4.23-9.07) K/mm3 RBC (4.63-6.08) M/mm3 Hgb (13.7-17.5) gm/dl Hct (40.1-51.0) % MCV (79.0-92.2) fl MCH (25.7-32.2) pg MCHC (32.2-35.5) g/dl RDW Std Deviation (35.1-43.9) fL Plt Count (163-337) K/mm3 MPV (9.4-12.3) fl Neut % (Auto) (34.0-67.9) % Lymph % (Auto) (21.8-53.1) % [place] % (Auto) (5.3-12.2) % Eos % (Auto) (0.8-7.0) Baso % (Auto) (0.1-1.2) % Neut # (Auto) (1.78-5.38) K/mm3 Lymph # (Auto) (1.32-3.57) K/mm3 [place]ner # (Auto) (0.30-0.82) K/mm3 Eos # (Auto) (0.04-0.54) K/mm3 Baso # (Auto) (0.01-0.08) K/mm3 PT (9.7-12.0) SECONDS INR Sodium (136-145) mEq/L Potassium (3.5-5.1) mEq/L Chloride (98-107) mEq/L Carbon Dioxide (21-32) mEq/L Anion Gap (5-15) BUN (7-18) mg/dL Creatinine (0.7-1.3) mg/dL Est Cr Clr Drug Dosing mL/min Estimated GFR (MDRD) (>60) mL/min BUN/Creatinine Ratio (14-18) Glucose (83-115) mg/dL Calcium (8.5-10.1) mg/dL Magnesium (1.8-2.4) mg/dl Total Bilirubin (0.2-1.0) mg/dL AST (15-37) U/L ALT (16-63) U/L Alkaline Phosphatase (46-116) U/L Troponin I (0.00-0.056) ng/mL Total Protein (6.4-8.2) g/dl Albumin (3.4-5.0) g/dl Globulin gm/dL Albumin/Globulin Ratio (1-2) Urine Color Yellow (Yellow) Urine Appearance Clear (Clear) Urine pH 7.0 (5.0-8.0) Ur Specific [place] 1.015 (1.005-1.030) Urine Protein Negative (Negative) Urine Glucose (UA) Negative (Negative) Urine Ketones Negative (Negative) Urine Occult Blood 2+ H (Negative) Urine Nitrite Negative (Negative) Urine Bilirubin Negative (Negative) Urine Urobilinogen 0.2 (0.2-1.0) Ur Leukocyte Esterase 1+ H (Negative) Urine RBC 5-10 H (0-5) /hpf Urine WBC 0-5 (0-5) /hpf Ur Squamous Epith Cells 0-5 (0-5) /hpf Urine Bacteria Few (FEW) /hpf Urine Mucus Not seen (FEW) /hpf MRSA (PCR) Negative Med Orders - Current: Current Medications Sodium Chloride (Saline Flush) 10 ml FLUSH ASDIRECTED PRN PRN Reason: Keep Vein Open Last Admin: 07/16/19 20:00 Dose: 10 ml Discontinued Medications Amlodipine Besylate (Norvasc) 5 mg PO ONETIME ONE Stop: 07/16/19 23:16 Last Admin: 07/16/19 23:15 Dose: 5 mg Doxazosin Mesylate (Cardura) 4 mg PO BEDTIME ONE Stop: 07/16/19 23:31 Last Admin: 07/16/19 23:15 Dose: 4 mg Metoprolol Tartrate (Lopressor) 50 mg PO ONETIME ONE Stop: 07/16/19 23:31 Last Admin: 07/17/19 05:18 Dose: 50 mg - Exam General: Alert, Oriented, Cooperative, No Acute Distress HEENT: Pupils Equal, Pupils Reactive Neck: Supple, Trachea Midline, No JVD, No Thyromegaly, +2 Carotid Pulse wo Bruit Lungs: Clear to Auscultation, Normal Respiratory Effort. No: Crackles, Rales, Wheezing Cardiovascular: Regular Rate, Irregular Rhythm GI/Abdominal Exam: Normal Bowel Sounds, Soft, Non-Tender, No Organomegaly, No Distention, No Mass Extremities: Normal Inspection, Normal Range of Motion, No Pedal Edema, Normal Capillary Refill Skin: Warm, Intact EKG INTERPRETATION Rhythm: A-Fib Lovely: LAD-Left Lovely Deviation P-Wave: Absent Comparison: Change From Previous EKG (2017) - Problem List & Annotations (1) TIA (transient ischemic attack) SNOMED Code(s): 897848509 Code(s): G45.9 - TRANSIENT CEREBRAL ISCHEMIC ATTACK, UNSPECIFIED Status: Acute Current Visit: Yes (2) Atrial fibrillation with controlled ventricular rate SNOMED Code(s): 39764133 Code(s): I48.91 - UNSPECIFIED ATRIAL FIBRILLATION Status: Acute Current Visit: Yes (3) Hypertension SNOMED Code(s): 25333523 Code(s): I10 - ESSENTIAL (PRIMARY) HYPERTENSION Status: Acute Current Visit: Yes (4) Hypothyroidism SNOMED Code(s): 93722516 Code(s): E03.9 - HYPOTHYROIDISM, UNSPECIFIED Status: Acute Current Visit : Yes (5) Lymphopenia SNOMED Code(s): 41429119 Code(s): D72.810 - LYMPHOCYTOPENIA Status: Acute Current Visit: Yes (6) Anemia SNOMED Code(s): 140563191 Code(s): D64.9 - ANEMIA, UNSPECIFIED Status: Acute Current Visit: No (7) Chronic kidney disease (CKD) stage G3b/A1, moderately decreased glomerular filtration rate (GFR) between 30-44 mL/min/1.73 square meter and albuminuria creatinine ratio less than 30 mg/g SNOMED Code(s): 065414157, 794168797 Code(s): N18.3 - CHRONIC KIDNEY DISEASE, STAGE 3 (MODERATE) Status: Acute Current Visit: Yes (8) Chronic hyponatremia SNOMED Code(s): 12751898 Code(s): E87.1 - HYPO-OSMOLALITY AND HYPONATREMIA Status: Acute Current Visit: Yes - Problem List Review Problem List Initiated/Reviewed/Updated: Yes - Assessment Assessment:: ASSESSMENT AND PLAN This is an 84-year-old with past medical history of HTN and hypothyroidism who came to the ED with symptoms of TIA. Transient ischemic attack NIH scale has remained at 0 since admission CTA head and neck pending HbA1c normal ASCVD risk 55% Passed bedside swallow PLAN - Pending echocardiogram on Friday - Continue atorvastatin 40mg and daily ASA 325mg - Continue telemetry, NIH scale - Case management and pediatric social worker evaluation New onset atrial fibrillation, CHADs VASC-3 Currently rate controlled HASBLED- 3 Discussed anticoagulation with family (stroke risk 3.2% and bleeding risk 3.7/ 100), pending decision Rate or rhythm control decision will be made once echo results are available PLAN - Telemetry - PRN meoprolol - F/U on echocardiogram Hypertension BP trend 135-165/77-97 Home management with lisinopril, amlodipine and metoprolol PLAN - Continue permissive HTN - PRN metoprolol Chronic Kidney Disease, Stage IIIB (GFR-45) Likely 2/2 chronic HTN PLAN - Monitor urine output - Renally dosed medications - Spot urine protein and creatinine Chronic hyponatremia, stable PLAN - Urine Na, K, Cl, Cr and BUN Normocytic normochromic anemia, stable No signs of acute bleeding PLAN - Monitor for blood loss - Order peripheral blood smear, iron panel, vitamin B12 and folic acid Lymphopenia, stable Stable from previous admission No previous work-up PLAN -Peripheral blood smear ordered and pending Hypothyroidism Home management with levothyroxine PLAN -Continue home levothyroxine PROPHYLAXIS DVT- Lovenox 40mg SQ q12h GI- not indicated ANCILLARY: Pending OT, speech, case management and social worker masters evaluations CODE STATUS: FULL CODE DISPOSITION: Discharge depending on recommendations by PT and OT to be facilitated by social worker masters and case management, discharge until Friday when echocardiogram and speech therapy evaluation will be performed.
[2019-07-17] MEDS ORDERED: Metoprolol Tartrate 5 MG/5 ML SDV IVPUSH PRN ×2 (07:59→15:51)
[2019-07-17 09:14] LABS: HEMOGLOBIN A1C 5.5 % (4.50-6.20)
[2019-07-17] MEDS: Rosuvastatin 10 MG Tab PO SCH (09:29)
[2019-07-17] MEDS: Aspirin 325 MG Tab.EC PO SCH (09:29)
[2019-07-17] MEDS ORDERED: Metoprolol Tartrate 5 MG/5 ML SDV IVPUSH ONE (09:42)
[2019-07-17] MEDS ORDERED: Iopamidol 755 Mg/ML 100 ML Bottle IVPUSH ONE (09:45)
[2019-07-17] MEDS ORDERED: Sodium Chloride 0.9% 10 ML Syringe FLUSH PRN (09:45)
[2019-07-17] MEDS ORDERED: Metoprolol Tartrate 5 MG in Sodium Chloride 0.9% 50 ML IV PRN ×2 (09:46→09:56)
[2019-07-17] MEDS ORDERED: Sodium Chloride 0.9% 1,000 ML IV SCH (10:00)
[2019-07-17] MEDS ORDERED: Sodium Chloride 0.9% 100 ML IV SCH (10:15)
[2019-07-17] MEDS: LEVOTHYROXINE 75 MCG PO SCH (11:13)
[2019-07-17] MEDS ORDERED: Enoxaparin 40 MG/0.4 ML Syringe SUBCUT SCH (11:45)
[2019-07-17] MEDS: Enoxaparin 40 MG/0.4 ML Syringe SUBCUT SCH (14:39)
--- NOTE | 2019-07-17 15:09 | CR ---
Chest: Frontal view of the chest was obtained. Comparison: Prior chest x-ray of 02/10/19. Heart size is slightly enlarged. 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 Lung markings are mildly increased most likely due to mild pulmonary vascular congestion. No acute parenchymal change is otherwise suspected. Bony structures are grossly intact. Impression: 1. Mild cardiomegaly and mild pulmonary vascular congestion. 2. Other findings as noted above believed to be incidental. Diagnostic code #3
[2019-07-17] MEDS ORDERED: Doxazosin 4 MG Tab PO ONE (22:13)
[2019-07-18] MEDS: LEVOTHYROXINE 75 MCG PO SCH (06:06)
[2019-07-18] MEDS: Rosuvastatin 10 MG Tab PO SCH (08:19)
[2019-07-18] MEDS: Aspirin 325 MG Tab.EC PO SCH (08:19)
[2019-07-18] MEDS: Enoxaparin 40 MG/0.4 ML Syringe SUBCUT SCH (08:20)
--- NOTE | 2019-07-18 09:15 | PCM.PN ---
- General Info Date of Service: 07/18/19 - Patient Data Vitals - Most Recent: Last Vital Signs Temp 36.7 C 07/18/19 06:29 Pulse 82 07/18/19 06:29 Resp 18 07/17/19 20:26 BP 143/95 H 07/18/19 06:29 Pulse Ox 94 L 07/18/19 06:29 Weight - Most Recent: 87.543 kg I&O - Last 24 Hours: Intake & Output 07/17/19 07/18/19 07/18/19 22:59 06:59 14:59 Intake Total 1020 400 Output Total 1200 800 Balance -180 -400 Lab Results Last 24 Hours: Laboratory Results - last 24 hr 07/17/19 07/17/19 07/18/19 Range/Units 08:24 08:24 04:35 Percent Retic 1.41 (0.51-1.81) % Sodium 132 L (136-145) mEq/L Potassium 4.4 (3.5-5.1) mEq/L Chloride 100 (98-107) mEq/L Carbon Dioxide 27 (21-32) mEq/L Anion Gap 9.4 (5-15) BUN 20 H (7-18) mg/dL Creatinine 1.6 H (0.7-1.3) mg/dL Est Cr Clr Drug Dosing 31.01 mL/min Estimated GFR (MDRD) 41 (>60) mL/min BUN/Creatinine Ratio 12.5 L (14-18) Glucose 99 (83-115) mg/dL POC Glucose (83-110) mg/dL Hemoglobin A1c 5.50 (4.50-6.20) % Calcium 8.6 (8.5-10.1) mg/dL Ferritin (26-388) ng/ml Triglycerides 90 (<150) mg/dL Cholesterol 123 (<200) mg/dL LDL Cholesterol Direct 76 (<100) mg/dL HDL Cholesterol 32.0 L (40-59) mg/dL Vitamin B12 (193-986) pg/ml Folate (8.6-58.9) ng/mL TSH 3rd Generation (0.358-3.74) uIU/mL Ur Random Creatinine (30.0-125.0) mg/dL U Random Total Protein (0.0-11.8) mg/dL Ur Random Sodium (40-220) mEq/L Protein/Creatinin Ratio (0-149) mg/g 07/18/19 07/18/19 07/18/19 Range/Units 04:35 04:35 05:58 Percent Retic (0.51-1.81) % Sodium (136-145) mEq/L Potassium (3.5-5.1) mEq/L Chloride (98-107) mEq/L Carbon Dioxide (21-32) mEq/L Anion Gap (5-15) BUN (7-18) mg/dL Creatinine (0.7-1.3) mg/dL Est Cr Clr Drug Dosing mL/min Estimated GFR (MDRD) (>60) mL/min BUN/Creatinine Ratio (14-18) Glucose (83-115) mg/dL POC Glucose 83 (83-110) mg/dL Hemoglobin A1c (4.50-6.20) % Calcium (8.5-10.1) mg/dL Ferritin 45 (26-388) ng/ml Triglycerides (<150) mg/dL Cholesterol (<200) mg/dL LDL Cholesterol Direct (<100) mg/dL HDL Cholesterol (40-59) mg/dL Vitamin B12 677 (193-986) pg/ml Folate 48.3 (8.6-58.9) ng/mL TSH 3rd Generation 2.826 (0.358-3.74) uIU/mL Ur Random Creatinine (30.0-125.0) mg/dL U Random Total Protein (0.0-11.8) mg/dL Ur Random Sodium (40-220) mEq/L Protein/Creatinin Ratio (0-149) mg/g 07/18/19 Range/Units 08:36 Percent Retic (0.51-1.81) % Sodium (136-145) mEq/L Potassium (3.5-5.1) mEq/L Chloride (98-107) mEq/L Carbon Dioxide (21-32) mEq/L Anion Gap (5-15) BUN (7-18) mg/dL Creatinine (0.7-1.3) mg/dL Est Cr Clr Drug Dosing mL/min Estimated GFR (MDRD) (>60) mL/min BUN/Creatinine Ratio (14-18) Glucose (83-115) mg/dL POC Glucose (83-110) mg/dL Hemoglobin A1c (4.50-6.20) % Calcium (8.5-10.1) mg/dL Ferritin (26-388) ng/ml Triglycerides (<150) mg/dL Cholesterol (<200) mg/dL LDL Cholesterol Direct (<100) mg/dL HDL Cholesterol (40-59) mg/dL Vitamin B12 (193-986) pg/ml Folate (8.6-58.9) ng/mL TSH 3rd Generation (0.358-3.74) uIU/mL Ur Random Creatinine 104.6 (30.0-125.0) mg/dL U Random Total Protein 30.1 H (0.0-11.8) mg/dL Ur Random Sodium 98 (40-220) mEq/L Protein/Creatinin Ratio 287.8 H (0-149) mg/g Andrea Results Last 24 Hours: Microbiology 07/16/19 23:16 MRSA Culture - Final Nasal/Axilla/Groin NO MRSA ISOLATED Med Orders - Current: Current Medications Aspirin (Ecotrin) 325 mg PO DAILY [facility] Last Admin: 07/18/19 08:19 Dose: 325 mg Enoxaparin Sodium (Lovenox) 40 mg SUBCUT DAILY [facility] Last Admin: 07/18/19 08:20 Dose: 40 mg Metoprolol Tartrate (Lopressor) 5 mg IVPUSH Q4H PRN PRN Reason: Hypertension Metoprolol Tartrate (Lopressor) 5 mg IVPUSH Q4H PRN PRN Reason: Tachycardia Last Admin: 07/17/19 22:13 Dose: 5 mg Metoprolol Tartrate (Lopressor) 50 mg PO BID [facility] Synthroid 75 Mcg Patient's Own Name Brand 0 each PO DAILY@0600 [facility] Last Admin: 07/18/19 06:06 Dose: 1 each Rosuvastatin Calcium (Crestor) 10 mg PO DAILY [facility] Last Admin: 07/18/19 08:19 Dose: 10 mg Sodium Chloride (Saline Flush) 10 ml FLUSH ASDIRECTED PRN PRN Reason: IV FLUSH Discontinued Medications Amlodipine Besylate (Norvasc) 5 mg PO ONETIME ONE Stop: 07/16/19 23:16 Last Admin: 07/16/19 23:15 Dose: 5 mg Doxazosin Mesylate (Cardura) 4 mg PO BEDTIME ONE Stop: 07/16/19 23:31 Last Admin: 07/16/19 23:15 Dose: 4 mg Enoxaparin Sodium (Lovenox) 40 mg SUBCUT DAILY [facility] Last Admin: 07/17/19 15:06 Dose: Not Given Sodium Chloride (Normal Saline) 1,000 mls @ 75 mls/hr IV ASDIRECTED [facility] Last Admin: 07/17/19 11:12 Dose: 75 mls/hr Metoprolol Tartrate 5 mg/ (Sodium Chloride) 55 mls @ 100 mls/hr IV ONETIME PRN PRN Reason: Hypertension Metoprolol Tartrate 5 mg/ (Sodium Chloride) 55 mls @ 100 mls/hr IV ONETIME PRN PRN Reason: Tachycardia Sodium Chloride (Normal Saline) 100 mls @ 75 mls/hr IV ASDIRECTED [facility] Last Admin: 07/17/19 10:48 Dose: 75 mls/hr Iopamidol (Isovue-370 (76%)) 100 ml IVPUSH ONETIME ONE Stop: 07/17/19 09:46 Last Admin: 07/17/19 10:11 Dose: 100 ml Metoprolol Tartrate (Lopressor) 50 mg PO ONETIME ONE Stop: 07/16/19 23:31 Last Admin: 07/17/19 05:18 Dose: 50 mg Metoprolol Tartrate (Lopressor) 5 mg IVPUSH ONETIME ONE Stop: 07/17/19 09:43 Last Admin: 07/17/19 09:47 Dose: 5 mg Sodium Chloride (Saline Flush) 10 ml FLUSH ASDIRECTED PRN PRN Reason: Keep Vein Open Last Admin: 07/16/19 20:00 Dose: 10 ml - Problem List & Annotations (1) TIA (transient ischemic attack) SNOMED Code(s): 251805531 Code(s): G45.9 - TRANSIENT CEREBRAL ISCHEMIC ATTACK, UNSPECIFIED Status: Acute Current Visit: Yes (2) Atrial fibrillation with controlled ventricular rate SNOMED Code(s): 55670333 Code(s): I48.91 - UNSPECIFIED ATRIAL FIBRILLATION Status: Acute Current Visit: Yes (3) Hypertension SNOMED Code(s): 20458983 Code(s): I10 - ESSENTIAL (PRIMARY) HYPERTENSION Status: Acute Current Visit: Yes (4) Hypothyroidism SNOMED Code(s): 52907441 Code(s): E03.9 - HYPOTHYROIDISM, UNSPECIFIED Status: Acute Current Visit : Yes (5) Lymphopenia SNOMED Code(s): 16589276 Code(s): D72.810 - LYMPHOCYTOPENIA Status: Acute Current Visit: Yes (6) Anemia SNOMED Code(s): 057886485 Code(s): D64.9 - ANEMIA, UNSPECIFIED Status: Acute Current Visit: No (7) Chronic kidney disease (CKD) stage G3b/A1, moderately decreased glomerular filtration rate (GFR) between 30-44 mL/min/1.73 square meter and albuminuria creatinine ratio less than 30 mg/g SNOMED Code(s): 784951060, 416889912 Code(s): N18.3 - CHRONIC KIDNEY DISEASE, STAGE 3 (MODERATE) Status: Acute Current Visit: Yes (8) Chronic hyponatremia SNOMED Code(s): 39429833 Code(s): E87.1 - HYPO-OSMOLALITY AND HYPONATREMIA Status: Acute Current Visit: Yes - My Orders Last 24 Hours: My Active Orders 07/17/19 08:19 Consult to Occupational Therapy [OT Evaluation and Treatment] [CONS] Routine PT Evaluation and Treatment [CONS] Routine 07/17/19 08:21 NIH Stroke Scale [RC] 08,20 07/17/19 09:00 Aspirin [Ecotrin] 325 mg PO DAILY Rosuvastatin [Crestor] 10 mg PO DAILY 07/17/19 09:45 Sodium Chloride 0.9% [Saline Flush] 10 ml FLUSH ASDIRECTED PRN 07/17/19 10:15 EKG 12 Lead [EK] Stat 07/17/19 11:00 Patient's Own Medication [Ptom] 0 each PO DAILY@0600 07/17/19 14:25 Cooling Warming Measures [RC] ASDIRECTED K Pad [Heat Therapy] [OM.PC] Routine 07/17/19 14:30 Enoxaparin [Lovenox] 40 mg SUBCUT DAILY 07/17/19 14:32 Heat Therapy [OM.PC] Routine 07/17/19 14:33 Telemetry Monitoring [Cardiac Monitoring] [RC] . DIRECTED 07/17/19 15:51 Metoprolol Tartrate [Lopressor] 5 mg IVPUSH Q4H PRN 07/18/19 12:00 Metoprolol Tartrate [Lopressor] 50 mg PO BID - Assessment Assessment:: ASSESSMENT AND PLAN This is an 84-year-old with past medical history of HTN and hypothyroidism who came to the ED with symptoms of TIA. Transient ischemic attack NIH scale has remained at 0 since admission CTA head and neck pending HbA1c normal ASCVD risk 55% Passed bedside swallow PLAN - Pending echocardiogram on Friday - Continue atorvastatin 40mg and daily ASA 325mg - Continue telemetry, NIH scale - Case management and social work program coordinator evaluation New onset atrial fibrillation, CHADs VASC-3 Currently rate controlled HASBLED- 3 Discussed anticoagulation with family (stroke risk 3.2% and bleeding risk 3.7/ 100), pending decision Rate or rhythm control decision will be made once echo results are available PLAN - Telemetry - PRN meoprolol - F/U on echocardiogram Hypertension BP trend 135-165/77-97 Home management with lisinopril, amlodipine and metoprolol PLAN - Continue permissive HTN - PRN metoprolol Chronic Kidney Disease, Stage IIIB (GFR-45) Likely 2/2 chronic HTN PLAN - Monitor urine output - Renally dosed medications - Spot urine protein and creatinine Chronic hyponatremia, stable PLAN - Urine Na, K, Cl, Cr and BUN Normocytic normochromic anemia, stable No signs of acute bleeding PLAN - Monitor for blood loss - Order peripheral blood smear, iron panel, vitamin B12 and folic acid Lymphopenia, stable Stable from previous admission No previous work-up PLAN -Peripheral blood smear ordered and pending Hypothyroidism Home management with levothyroxine PLAN -Continue home levothyroxine PROPHYLAXIS DVT- Lovenox 40mg SQ q12h GI- not indicated ANCILLARY: Pending OT, speech, case management and social work program coordinator evaluations CODE STATUS: FULL CODE DISPOSITION: Discharge depending on recommendations by PT and OT to be facilitated by social work program coordinator and case management, discharge until Friday when echocardiogram and speech therapy evaluation will be performed.
[2019-07-18] MEDS ORDERED: Metoprolol Tartrate 50 MG Tab**OWN MED PO SCH (12:00)
[2019-07-18] MEDS ORDERED: Metoprolol Tartrate 50 MG Tab PO SCH (12:00)
--- NOTE | 2019-07-18 12:00 | CT ---
CT angiogram of brain Technique: Multiple axial sections through the brain were obtained. Intravenous contrast was utilized. Multiple MIP images were obtained. Findings: Visualized internal and vertebral arteries are patent. Contrast is seen within the anterior, middle and posterior cerebral arteries which show no focal stenosis or occlusion. No gross aneurysm is seen. Impression: 1. No focal stenosis or occlusion is seen on CT study of the brain. Diagnostic code #1 I agree with preliminary report from [facility], finalized on 07/17/19, 12:24 PM Central Time
--- NOTE | 2019-07-18 12:00 | CT ---
CT angiogram of neck Technique: Multiple axial sections through the neck were obtained. Intravenous contrast was utilized. Multiple MIP images were obtained. Findings: Calcified plaque is noted within the carotid bulb on both sides. This causes moderate narrowing of the proximal left internal carotid artery with this narrowing measuring between 50 and 60%. No other focal areas of narrowing are seen within the common carotid arteries, internal carotid arteries or visualized external carotid arteries. Vertebral arteries are patent. Impression: 1. 50-60% narrowing of the proximal left internal carotid artery. Atherosclerotic calcified plaque within both carotid bulbs. 2. No other areas of focal stenosis or occlusion seen. Diagnostic code #3 I agree with preliminary report from [facility], finalized on 07/17/19, 12:26 PM Central Time
[2019-07-18] MEDS: Metoprolol Tartrate 50 MG Tab PO SCH ×2 (12:18→21:20)
[2019-07-18] MEDS: Psyllium Husk Powder Sugar Free 3.4 GM Packet PO SCH (18:26)
[2019-07-18] MEDS: amLODIPine 5 MG Tab PO SCH (21:19)
[2019-07-18] MEDS: Lisinopril 10 MG Tab PO SCH (21:20)
[2019-07-19] MEDS: Levothyroxine 75 MCG Tab PO SCH (06:11)
[2019-07-19] MEDS: Psyllium Husk Powder Sugar Free 3.4 GM Packet PO SCH ×2 (06:13→11:49)
[2019-07-19] MEDS: Doxazosin 4 MG Tab PO SCH (08:03)
[2019-07-19] MEDS: Rosuvastatin 10 MG Tab PO SCH (08:06)
[2019-07-19] MEDS: Aspirin 325 MG Tab.EC PO SCH (08:06)
[2019-07-19] MEDS: Metoprolol Tartrate 50 MG Tab PO SCH ×2 (08:07→20:27)
[2019-07-19] MEDS: Lisinopril 10 MG Tab PO SCH (08:07)
[2019-07-19] MEDS: amLODIPine 5 MG Tab PO SCH ×2 (08:07→20:27)
[2019-07-19] MEDS: Enoxaparin 40 MG/0.4 ML Syringe SUBCUT SCH (08:08)
[2019-07-19] MEDS ORDERED: Apixaban 2.5 MG Tab PO STA (19:51)
--- NOTE | 2019-07-19 20:12 | PCM.PN ---
- General Info Date of Service: 07/19/19 - Patient Data Vitals - Most Recent: Last Vital Signs Temp 36.4 C 07/19/19 19:55 Pulse 90 07/19/19 19:58 Resp 18 07/19/19 19:55 BP 142/89 H 07/19/19 16:30 Pulse Ox 97 07/19/19 19:55 Weight - Most Recent: 87.952 kg I&O - Last 24 Hours: Intake & Output 07/19/19 07/19/19 07/19/19 06:59 14:59 22:59 Intake Total 500 340 890 Output Total 1200 550 Balance -700 340 340 Med Orders - Current: Current Medications Amlodipine Besylate (Norvasc) 5 mg PO BID [facility] Last Admin: 07/19/19 08:07 Dose: 5 mg Apixaban (Eliquis) 2.5 mg PO BID [facility] Stop: 07/19/19 19:52 Aspirin (Aspirin) 81 mg PO DAILY [facility] Doxazosin Mesylate (Cardura) 4 mg PO DAILY [facility] Last Admin: 07/19/19 08:03 Dose: 4 mg Levothyroxine Sodium (Levothyroxine) 75 mcg PO DAILY@0600 [facility] Last Admin: 07/19/19 06:11 Dose: 75 mcg Lisinopril (Prinivil) 10 mg PO DAILY [facility] Last Admin: 07/19/19 08:07 Dose: 10 mg Metoprolol Tartrate (Lopressor) 5 mg IVPUSH Q4H PRN PRN Reason: Hypertension Metoprolol Tartrate (Lopressor) 5 mg IVPUSH Q4H PRN PRN Reason: Tachycardia Last Admin: 07/17/19 22:13 Dose: 5 mg Metoprolol Tartrate (Lopressor) 50 mg PO BID [facility] Last Admin: 07/19/19 08:07 Dose: 50 mg Rosuvastatin Calcium (Crestor) 10 mg PO DAILY [facility] Last Admin: 07/19/19 08:06 Dose: 10 mg Sodium Chloride (Saline Flush) 10 ml FLUSH ASDIRECTED PRN PRN Reason: IV FLUSH Discontinued Medications Amlodipine Besylate (Norvasc) 5 mg PO ONETIME ONE Stop: 07/16/19 23:16 Last Admin: 07/16/19 23:15 Dose: 5 mg Aspirin (Ecotrin) 325 mg PO DAILY [facility] Last Admin: 07/19/19 08:06 Dose: 325 mg Doxazosin Mesylate (Cardura) 4 mg PO BEDTIME ONE Stop: 07/16/19 23:31 Last Admin: 07/16/19 23:15 Dose: 4 mg Enoxaparin Sodium (Lovenox) 40 mg SUBCUT DAILY [facility] Last Admin: 07/17/19 15:06 Dose: Not Given Enoxaparin Sodium (Lovenox) 40 mg SUBCUT DAILY [facility] Last Admin: 07/19/19 08:08 Dose: 40 mg Sodium Chloride (Normal Saline) 1,000 mls @ 75 mls/hr IV ASDIRECTED [facility] Last Admin: 07/17/19 11:12 Dose: 75 mls/hr Metoprolol Tartrate 5 mg/ (Sodium Chloride) 55 mls @ 100 mls/hr IV ONETIME PRN PRN Reason: Hypertension Metoprolol Tartrate 5 mg/ (Sodium Chloride) 55 mls @ 100 mls/hr IV ONETIME PRN PRN Reason: Tachycardia Sodium Chloride (Normal Saline) 100 mls @ 75 mls/hr IV ASDIRECTED [facility] Last Admin: 07/17/19 10:48 Dose: 75 mls/hr Iopamidol (Isovue-370 (76%)) 100 ml IVPUSH ONETIME ONE Stop: 07/17/19 09:46 Last Admin: 07/17/19 10:11 Dose: 100 ml Metoprolol Tartrate (Lopressor) 50 mg PO ONETIME ONE Stop: 07/16/19 23:31 Last Admin: 07/17/19 05:18 Dose: 50 mg Metoprolol Tartrate (Lopressor) 5 mg IVPUSH ONETIME ONE Stop: 07/17/19 09:43 Last Admin: 07/17/19 09:47 Dose: 5 mg Metoprolol Tartrate (Lopressor) 50 mg PO BID [facility] Metoprolol Tartrate (Lopressor) 50 mg PO BID [facility] Last Admin: 07/18/19 13:26 Dose: Not Given Synthroid 75 Mcg Patient's Own Name Brand 0 each PO DAILY@0600 [facility] Last Admin: 07/18/19 06:06 Dose: 1 each Psyllium Husk (Metamucil Sugar Free) 1 packet PO TIDMEALS [facility] Stop: 07/19/19 11:01 Last Admin: 07/19/19 11:49 Dose: 1 packet Sodium Chloride (Saline Flush) 10 ml FLUSH ASDIRECTED PRN PRN Reason: Keep Vein Open Last Admin: 07/16/19 20:00 Dose: 10 ml - Problem List & Annotations (1) TIA (transient ischemic attack) SNOMED Code(s): 960622924 Code(s): G45.9 - TRANSIENT CEREBRAL ISCHEMIC ATTACK, UNSPECIFIED Status: Acute Current Visit: Yes (2) Atrial fibrillation with controlled ventricular rate SNOMED Code(s): 59724099 Code(s): I48.91 - UNSPECIFIED ATRIAL FIBRILLATION Status: Acute Current Visit: Yes (3) Hypertension SNOMED Code(s): 90903728 Code(s): I10 - ESSENTIAL (PRIMARY) HYPERTENSION Status: Acute Current Visit: Yes (4) Hypothyroidism SNOMED Code(s): 73892851 Code(s): E03.9 - HYPOTHYROIDISM, UNSPECIFIED Status: Acute Current Visit : Yes (5) Lymphopenia SNOMED Code(s): 64733374 Code(s): D72.810 - LYMPHOCYTOPENIA Status: Acute Current Visit: Yes (6) Anemia SNOMED Code(s): 239864827 Code(s): D64.9 - ANEMIA, UNSPECIFIED Status: Acute Current Visit: No (7) Chronic kidney disease (CKD) stage G3b/A1, moderately decreased glomerular filtration rate (GFR) between 30-44 mL/min/1.73 square meter and albuminuria creatinine ratio less than 30 mg/g SNOMED Code(s): 445302015, 338305085 Code(s): N18.3 - CHRONIC KIDNEY DISEASE, STAGE 3 (MODERATE) Status: Acute Current Visit: Yes (8) Chronic hyponatremia SNOMED Code(s): 35033938 Code(s): E87.1 - HYPO-OSMOLALITY AND HYPONATREMIA Status: Acute Current Visit: Yes - My Orders Last 24 Hours: My Active Orders 07/18/19 21:00 Lisinopril [Prinivil] 10 mg PO DAILY amLODIPine [Norvasc] 5 mg PO BID 07/19/19 06:00 Levothyroxine 75 mcg PO DAILY@0600 07/19/19 09:00 Doxazosin [Cardura] 4 mg PO DAILY 07/19/19 10:57 Consult to Speech Language Pathology [[employer] Evaluation and Treatment] [CONS] Routine 07/19/19 19:51 Apixaban [Eliquis] 2.5 mg PO BID [facility] 07/20/19 09:00 Aspirin 81 mg PO DAILY - Assessment Assessment:: ASSESSMENT AND PLAN This is an 84-year-old with past medical history of HTN and hypothyroidism who came to the ED with symptoms of TIA. Transient ischemic attack NIH scale has remained at 0 since admission CTA head and neck pending HbA1c normal ASCVD risk 55% Passed bedside swallow PLAN - Pending echocardiogram on Friday - Continue atorvastatin 40mg and daily ASA 325mg - Continue telemetry, NIH scale - Case management and social media marketing manager evaluation New onset atrial fibrillation, CHADs VASC-3 Currently rate controlled HASBLED- 3 Discussed anticoagulation with family (stroke risk 3.2% and bleeding risk 3.7/ 100), pending decision Rate or rhythm control decision will be made once echo results are available PLAN - Telemetry - PRN meoprolol - F/U on echocardiogram Hypertension BP trend 135-165/77-97 Home management with lisinopril, amlodipine and metoprolol PLAN - Continue permissive HTN - PRN metoprolol Chronic Kidney Disease, Stage IIIB (GFR-45) Likely 2/2 chronic HTN PLAN - Monitor urine output - Renally dosed medications - Spot urine protein and creatinine Chronic hyponatremia, stable PLAN - Urine Na, K, Cl, Cr and BUN Normocytic normochromic anemia, stable No signs of acute bleeding PLAN - Monitor for blood loss - Order peripheral blood smear, iron panel, vitamin B12 and folic acid Lymphopenia, stable Stable from previous admission No previous work-up PLAN -Peripheral blood smear ordered and pending Hypothyroidism Home management with levothyroxine PLAN -Continue home levothyroxine PROPHYLAXIS DVT- Lovenox 40mg SQ q12h GI- not indicated ANCILLARY: Pending OT, speech, case management and social services assistant evaluations CODE STATUS: FULL CODE DISPOSITION: Discharge depending on recommendations by PT and OT to be facilitated by social services assistant and case management, discharge until Friday when echocardiogram and speech therapy evaluation will be performed.
[2019-07-20] MEDS: Levothyroxine 75 MCG Tab PO SCH (05:10)
[2019-07-20] MEDS ORDERED: Apixaban 2.5 MG Tab PO ONE (08:47)
[2019-07-20] MEDS: Lisinopril 10 MG Tab PO SCH (08:50)
[2019-07-20] MEDS: Doxazosin 4 MG Tab PO SCH (08:50)
[2019-07-20] MEDS: Rosuvastatin 10 MG Tab PO SCH (08:51)
[2019-07-20] MEDS: amLODIPine 5 MG Tab PO SCH (08:51)
[2019-07-20] MEDS: Metoprolol Tartrate 50 MG Tab PO SCH (08:51)
[2019-07-20] MEDS ORDERED: Aspirin 81 MG Tab.Chew PO SCH (09:00)
--- NOTE | 2019-07-20 14:11 | PCM.DCSUM1 ---
Discharge Summary - Discharge Data Discharge Disposition: Home, Self-Care 01 Condition: Good - Referral to Home Health Primary Care Physician: Jonatan Dumas PA-C - Discharge Diagnosis/Problem(s) (1) TIA (transient ischemic attack) SNOMED Code(s): 903487786 ICD Code: G45.9 - TRANSIENT CEREBRAL ISCHEMIC ATTACK, UNSPECIFIED Status: Acute Current Visit: Yes (2) Atrial fibrillation with controlled ventricular rate SNOMED Code(s): 51331444 ICD Code: I48.91 - UNSPECIFIED ATRIAL FIBRILLATION Status: Acute Current Visit: Yes (3) Hypertension SNOMED Code(s): 05605226 ICD Code: I10 - ESSENTIAL (PRIMARY) HYPERTENSION Status: Acute Current Visit: Yes (4) Hypothyroidism SNOMED Code(s): 05207626 ICD Code: E03.9 - HYPOTHYROIDISM, UNSPECIFIED Status: Acute Current Visit : Yes (5) Lymphopenia SNOMED Code(s): 00430475 ICD Code: D72.810 - LYMPHOCYTOPENIA Status: Acute Current Visit: Yes (6) Anemia SNOMED Code(s): 875903620 ICD Code: D64.9 - ANEMIA, UNSPECIFIED Status: Acute Current Visit: No Qualifiers: Anemia type: other cause Other causes of anemia: other cause, not classified Qualified Code(s): D64.89 - Other specified anemias (7) Chronic kidney disease (CKD) stage G3b/A1, moderately decreased glomerular filtration rate (GFR) between 30-44 mL/min/1.73 square meter and albuminuria creatinine ratio less than 30 mg/g SNOMED Code(s): 130352660, 911664892 ICD Code: N18.3 - CHRONIC KIDNEY DISEASE, STAGE 3 (MODERATE) Status: Acute Current Visit: Yes (8) Chronic hyponatremia SNOMED Code(s): 29380569 ICD Code: E87.1 - HYPO-OSMOLALITY AND HYPONATREMIA Status: Acute Current Visit: Yes - Patient Summary/Data Consults: Consultations 07/17/19 08:19 Consult to Occupational Therapy [OT Evaluation and Treatment] [CONS] Routine PT Evaluation and Treatment [CONS] Routine 07/19/19 10:57 Consult to Speech Language Pathology [[employer]AL [employer]PER[employer]OR Evaluation and Treatment] [CONS] Routine - Discharge Plan Prescriptions/Med Rec: Apixaban [Eliquis] 2.5 mg PO BID #60 tablet Home Medications: Home Meds Levothyroxine Sodium [Synthroid] 75 mcg PO DAILY 05/27/16 [History] Metoprolol Tartrate 50 mg PO BID 05/27/16 [History] Omeprazole Magnesium [Prilosec Otc] 20 mg PO DAILY 05/27/16 [History] amLODIPine Besylate [Amlodipine Besylate] 5 mg PO BID 05/27/16 [History] Doxazosin Mesylate [Cardura XL] 4 mg PO DAILY #30 tab.er.24 03/24/17 [Rx] Lisinopril 10 mg PO DAILY 07/16/19 [History] Apixaban [Eliquis] 2.5 mg PO BID #60 tablet 07/20/19 [Rx] Patient Handouts: Carotid Artery Disease, Transient Ischemic Attack, Atrial Fibrillation Forms: ED Department Discharge Referrals: Jonatan Dumas PA-C [Primary Care Provider] - - Patient Data Vitals - Most Recent: Last Vital Signs Temp 36.8 C 07/20/19 08:27 Pulse 100 07/20/19 08:51 Resp 16 07/20/19 08:27 BP 155/90 H 07/20/19 08:51 Pulse Ox 94 L 07/20/19 08:27 Weight - Most Recent: 87.498 kg I&O - Last 24 hours: Intake & Output 07/19/19 07/20/19 07/20/19 22:59 06:59 14:59 Intake Total 890 600 420 Output Total 550 1050 Balance 340 -450 420 Med Orders - Current: Current Medications Amlodipine Besylate (Norvasc) 5 mg PO BID [facility] Last Admin: 07/20/19 08:51 Dose: 5 mg Aspirin (Aspirin) 81 mg PO DAILY [facility] Last Admin: 07/20/19 08:48 Dose: 81 mg Doxazosin Mesylate (Cardura) 4 mg PO DAILY [facility] Last Admin: 07/20/19 08:50 Dose: 4 mg Levothyroxine Sodium (Levothyroxine) 75 mcg PO DAILY@0600 [facility] Last Admin: 07/20/19 05:10 Dose: 75 mcg Lisinopril (Prinivil) 10 mg PO DAILY [facility] Last Admin: 07/20/19 08:50 Dose: 10 mg Metoprolol Tartrate (Lopressor) 5 mg IVPUSH Q4H PRN PRN Reason: Hypertension Metoprolol Tartrate (Lopressor) 5 mg IVPUSH Q4H PRN PRN Reason: Tachycardia Last Admin: 07/17/19 22:13 Dose: 5 mg Metoprolol Tartrate (Lopressor) 50 mg PO BID [facility] Last Admin: 07/20/19 08:51 Dose: 50 mg Rosuvastatin Calcium (Crestor) 10 mg PO DAILY [facility] Last Admin: 07/20/19 08:51 Dose: 10 mg Sodium Chloride (Saline Flush) 10 ml FLUSH ASDIRECTED PRN PRN Reason: IV FLUSH Discontinued Medications Amlodipine Besylate (Norvasc) 5 mg PO ONETIME ONE Stop: 07/16/19 23:16 Last Admin: 07/16/19 23:15 Dose: 5 mg Apixaban (Eliquis) 2.5 mg PO BID [facility] Stop: 07/19/19 19:52 Last Admin: 07/19/19 20:28 Dose: 2.5 mg Apixaban (Eliquis) 2.5 mg PO DAILY ONE Stop: 07/20/19 08:48 Last Admin: 07/20/19 08:55 Dose: 2.5 mg Aspirin (Ecotrin) 325 mg PO DAILY [facility] Last Admin: 07/19/19 08:06 Dose: 325 mg Doxazosin Mesylate (Cardura) 4 mg PO BEDTIME ONE Stop: 07/16/19 23:31 Last Admin: 07/16/19 23:15 Dose: 4 mg Enoxaparin Sodium (Lovenox) 40 mg SUBCUT DAILY [facility] Last Admin: 07/17/19 15:06 Dose: Not Given Enoxaparin Sodium (Lovenox) 40 mg SUBCUT DAILY [facility] Last Admin: 07/19/19 08:08 Dose: 40 mg Sodium Chloride (Normal Saline) 1,000 mls @ 75 mls/hr IV ASDIRECTED [facility] Last Admin: 07/17/19 11:12 Dose: 75 mls/hr Metoprolol Tartrate 5 mg/ (Sodium Chloride) 55 mls @ 100 mls/hr IV ONETIME PRN PRN Reason: Hypertension Metoprolol Tartrate 5 mg/ (Sodium Chloride) 55 mls @ 100 mls/hr IV ONETIME PRN PRN Reason: Tachycardia Sodium Chloride (Normal Saline) 100 mls @ 75 mls/hr IV ASDIRECTED [facility] Last Admin: 07/17/19 10:48 Dose: 75 mls/hr Influenza Virus Vaccine (Pharmacy To Dose - Influenza Vaccine) 1 each IM ONETIME ONE Stop: 07/20/19 13:01 Influenza Virus Vaccine (Fluzone High-Dose 2019-20 Syringe) 180 mcg IM .ONCE ONE Stop: 07/20/19 11:16 Iopamidol (Isovue-370 (76%)) 100 ml IVPUSH ONETIME ONE Stop: 07/17/19 09:46 Last Admin: 07/17/19 10:11 Dose: 100 ml Metoprolol Tartrate (Lopressor) 50 mg PO ONETIME ONE Stop: 07/16/19 23:31 Last Admin: 07/17/19 05:18 Dose: 50 mg Metoprolol Tartrate (Lopressor) 5 mg IVPUSH ONETIME ONE Stop: 07/17/19 09:43 Last Admin: 07/17/19 09:47 Dose: 5 mg Metoprolol Tartrate (Lopressor) 50 mg PO BID [facility] Metoprolol Tartrate (Lopressor) 50 mg PO BID [facility] Last Admin: 07/18/19 13:26 Dose: Not Given Synthroid 75 Mcg Patient's Own Name Brand 0 each PO DAILY@0600 [facility] Last Admin: 07/18/19 06:06 Dose: 1 each Psyllium Husk (Metamucil Sugar Free) 1 packet PO TIDMEALS [facility] Stop: 07/19/19 11:01 Last Admin: 07/19/19 11:49 Dose: 1 packet Sodium Chloride (Saline Flush) 10 ml FLUSH ASDIRECTED PRN PRN Reason: Keep Vein Open Last Admin: 07/16/19 20:00 Dose: 10 ml
[2019-07-20 14:26] VITALS: BP 121/73; PULSE 71
== END 2019-07-20 16:03 | disposition home or self-care (01) | DRG 69 ==
LOC: JD.ED 19:39 → JD.MS 21:51 → OBSVTOIN 07-18 11:05
PROVIDERS: ADMIT Internal Medicine; ATTEND Internal Medicine
DX: G45.9 Transient cerebral ischemic attack, unspecified (principal); E87.1 Hypo-osmolality and hyponatremia; I48.91 Unspecified atrial fibrillation; E03.9 Hypothyroidism, unspecified; D72.810 Lymphocytopenia; R42 Dizziness and giddiness; R47.01 Aphasia; D64.89 Other specified anemias; I12.9 Hypertensive chronic kidney disease with stage 1 through stage 4 chronic kidney disease, or unspecified chronic kidney disease; N18.3 Chronic kidney disease, stage 3 (moderate); Z79.01 Long term (current) use of anticoagulants; H54.7 Unspecified visual loss; Z22.322 Carrier or suspected carrier of Methicillin resistant Staphylococcus aureus; E78.00 Pure hypercholesterolemia, unspecified; K21.9 Gastro-esophageal reflux disease without esophagitis; M19.90 Unspecified osteoarthritis, unspecified site; D64.9 Anemia, unspecified; R29.700 NIHSS score 0; Z86.73 Personal history of transient ischemic attack (TIA), and cerebral infarction without residual deficits; Z90.49 Acquired absence of other specified parts of digestive tract; Z98.49 Cataract extraction status, unspecified eye; Z87.891 Personal history of nicotine dependence; Z79.899 Other long term (current) drug therapy; Z95.3 Presence of xenogenic heart valve
CPT/HCPCS: 36415 ×3; 70450; 70496; 70498; 71045; 80048; 80053; 80061; 81001; 82570; 82607; 82728; 82746; 82962; 83036; 83735; 84156; 84300; 84443; 84484; 85025 ×2; 85045; 85610; 87070; 87641; 93005 ×2; 97161; 99285; A9270 ×7; J1650 ×2; J3490 ×2; J7030; J7040; Q9967; 84100; 92610-GN; 93010; 93306; 96361; 96372; 96374; 96376; 97165-GO; G0378

== ENCOUNTER 2020-12-21 19:07 | Emergency (ER) | payer MEDICARE, MEDICAID ==
[2020-12-21] MEDS ORDERED: Furosemide 40 MG/4 ML VIAL IVPUSH ONE (19:39)
--- NOTE | 2020-12-21 19:45 | EDM.PDOC ---
ED HPI GENERAL MEDICAL PROBLEM - General Chief Complaint: General Stated Complaint: [facility] Time Seen by Provider: 12/21/20 19:15 Source of Information: Reports: Patient, Old Records (Admission 07/18/2019) History Limitations: Reports: No Limitations - History of Present Illness INITIAL COMMENTS - FREE TEXT/NARRATIVE: Mr. Maharaj is a very pleasant 85-year-old gentleman who is now brought to the ED by EMS in that he has had upper abdominal discomfort, that feels like gas, coming and going since this past 12/17/2020. He states that he feels better if he is up and walking around. No recent fever, nausea, vomiting, constipation, or diarrhea. No recent chest pain, however, the patient states that he felt like his heart was racing around 17:30 this evening, but also states that he is not feeling it at this time. The patient has not taken any [id number] or home remedies to address his symptoms. He states that he has been compliant with his medications. Review of prior medical records finds that the patient was found to be in atrial fibrillation on 07/18/2019. He was initially prescribed Eliquis, however, the patient tells me at this time that he subsequently followed up with his PCP, who took him off of it. Here in the ED, the patient's initial BP is found to be elevated at 185/74, otherwise, he is hemodynamically stable, afebrile, saturating 98% on room air. Prior to Friday, the patient denies having a recent fever, chills, sore throat, ear pain, nasal or sinus congestion, cough, dyspnea, chest pain, palpitations, nausea, vomiting, constipation, diarrhea, abdominal pain, urinary symptoms, recent weight gain or weight loss, recent bloody bowel movements or black bowel movements, recent joint aches, headaches, or rashes. The patient's PCP is CAT Mendez. The patient states that he has already received an influenza vaccine this season. - Related Data Allergies Allergy/AdvReac Type Severity Reaction Status Date / Time No Known Allergies Allergy Verified 12/21/20 19:18 Home Meds: Home Meds Levothyroxine Sodium [Synthroid] 75 mcg PO DAILY 05/27/16 [History] Metoprolol Tartrate 50 mg PO BID 05/27/16 [History] Omeprazole Magnesium [Prilosec Otc] 20 mg PO DAILY 05/27/16 [History] amLODIPine Besylate [Amlodipine Besylate] 5 mg PO BID 05/27/16 [History] Lisinopril 20 mg PO DAILY 07/16/19 [History] Doxazosin Mesylate [Cardura XL] 4 mg PO BEDTIME 12/21/20 [History] Rosuvastatin [Crestor] 10 mg PO BEDTIME 12/21/20 [History] Past Medical History HEENT History: Reports: Hard of Hearing (has hearing aides but does not wear them), Impaired Vision Cardiovascular History: Reports: Afib (paroxysmal), High Cholesterol, Hypertension Respiratory History: Reports: Sleep Apnea (suspected, not treated) Gastrointestinal History: Reports: GERD Musculoskeletal History: Reports: Osteoarthritis Neurological History: Reports: TIA Endocrine/Metabolic History: Reports: Hypothyroidism Hematologic History: Reports: Blood Transfusion(s) - Infectious Disease History 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: MRSA - Past Surgical History HEENT Surgical History: Reports: Cataract Surgery (bilateral), Oral Surgery (dental extractions) Cardiovascular Surgical History: Reports: Valve Replacement (porcine aortic) GI Surgical History: Reports: Cholecystectomy (around 2009), Hernia, Inguinal (bilateral) Social & Family History - Tobacco Use Tobacco Use Status *Q: Former Tobacco User Years of Tobacco use: 15 Packs/Tins Daily: 1 Month/Year Tobacco Last Used: Quit 1967 Tobacco Use Comment: Smoked from 17 yrs old until 32 yrs old - Caffeine Use Caffeine Use: Reports: Coffee Other Caffeine Use: drinks about 3 cups of coffee every day - Alcohol Use Alcohol Use History: Yes Alcohol Use Frequency: Socially - Recreational Drug Use Recreational Drug Use: No - Living Situation & Occupation Living situation: Reports: , with Spouse Occupation: Retired ED ROS GENERAL - Review of Systems Review Of Systems: Comprehensive ROS is negative, except as noted in HPI. ED EXAM, GENERAL - Physical Exam Exam: See Below Exam Limited By: No Limitations General Appearance: Alert, WD/WN, No Apparent Distress Eye Exam: Bilateral Eye: EOMI, Normal Inspection Ears: Normal External Exam, Hearing Loss Nose: Normal Inspection Throat/Mouth: Normal Inspection, Normal Lips, Normal Voice, No Airway Compromise Head: Atraumatic, Normocephalic Neck: Normal Inspection, Full Range of Motion Respiratory/Chest: No Respiratory Distress, Lungs Clear, Normal Breath Sounds, No Accessory Muscle Use Cardiovascular: Normal Peripheral Pulses, No Gallop, No JVD, No Murmur, No Rub, Tachycardia, Irregularly Irregular Peripheral Pulses: 3+: Radial (L), Radial (R) GI/Abdominal: Normal Bowel Sounds, Soft, Non-Tender (including the upper abdomen), No Organomegaly, No Distention, No Abnormal Bruit, No Mass Back Exam: Normal Inspection, Full Range of Motion, NT Extremities: Normal Inspection, Normal Range of Motion, Normal Capillary Refill, Other (1-2+ pretibial edema bilaterally) Neurological: Alert, Oriented, Normal Cognition, No Motor/Sensory Deficits Psychiatric: Normal Affect Skin Exam: Warm, Dry, Intact, Normal Color, No Rash #1 Interpretation EKG Date: 12/21/20 Time: 20:04 Rhythm: A-Fib Rate (Beats/Min): 89 [place]: Normal P-Wave: Absent QRS: Normal ST-T: Depressed (slight ST depression V4-V6, but no T-wave inversions to suggest ischemia) QT: Prolonged (QTc 488 ms) Comparison: No Change (07/17/2019) Course - Vital Signs Last Recorded V/S: Last Vital Signs Temp 36.2 C 12/21/20 19:12 Pulse 84 12/21/20 19:12 Resp 19 12/21/20 19:12 BP 185/74 H 12/21/20 19:19 Pulse Ox 98 12/21/20 19:12 - Orders/Labs/Meds Orders: Active Orders 24 hr Category Date Time Status EKG Documentation Completion [RC] STAT Care 12/21/20 19:38 Active Ang Chest [CT] Stat Exams 12/21/20 20:36 Taken Sodium Chloride 0.9% [Saline Flush] Med 12/21/20 21:15 Active 10 ml FLUSH ONETIME PRN Labs: Laboratory Tests 12/21/20 12/21/20 12/21/20 Range/Units 19:55 19:56 19:56 WBC 6.35 (4.23-9.07) K/mm3 RBC 3.86 L (4.63-6.08) M/mm3 Hgb 11.9 L (13.7-17.5) gm/dl Hct 35.3 L (40.1-51.0) % MCV 91.5 (79.0-92.2) fl MCH 30.8 (25.7-32.2) pg MCHC 33.7 (32.2-35.5) g/dl RDW Std Deviation 43.7 (35.1-43.9) fL Plt Count 235 (163-337) K/mm3 MPV 8.5 L (9.4-12.3) fl Neutrophils % (Manual) 83 H (40-60) % Band Neutrophils % 0 (0-10) % Lymphocytes % (Manual) 6 L (20-40) % Atypical Lymphs % 0 % Monocytes % (Manual) 10 (2-10) % Eosinophils % (Manual) 1 (0.8-7.0) % Basophils % (Manual) 0 L (0.2-1.2) Platelet Estimate Adequate Hypochromasia 1+ slight Microcytosis 1+ slight RBC Morph Comment Abnormal D-Dimer, Quantitative (0.19-0.50) mg/L Sodium 134 L (136-145) mEq/L Potassium 4.4 (3.5-5.1) mEq/L Chloride 98 (98-107) mEq/L Carbon Dioxide 24 (21-32) mEq/L Anion Gap 16.4 H (5-15) BUN 22 H (7-18) mg/dL Creatinine 1.5 H (0.7-1.3) mg/dL Est Cr Clr Drug Dosing 32.49 mL/min Estimated GFR (MDRD) 44 (>60) mL/min BUN/Creatinine Ratio 14.7 (14-18) Glucose 124 H (83-115) mg/dL Calcium 9.0 (8.5-10.1) mg/dL Magnesium 1.9 (1.8-2.4) mg/dl Total Bilirubin 0.3 (0.2-1.0) mg/dL AST 18 (15-37) U/L ALT 21 (16-63) U/L Alkaline Phosphatase 68 (46-116) U/L Troponin I < 0.017 (0.00-0.056) ng/mL Total Protein 7.8 (6.4-8.2) g/dl Albumin 3.7 (3.4-5.0) g/dl Globulin 4.1 gm/dL Albumin/Globulin Ratio 0.9 L (1-2) TSH 3rd Generation 3.651 (0.358-3.74) uIU/mL Urine Color (Yellow) Urine Appearance (Clear) Urine pH (5.0-8.0) Ur Specific [place] (1.005-1.030) Urine Protein (Negative) Urine Glucose (UA) (Negative) Urine Ketones (Negative) Urine Occult Blood (Negative) Urine Nitrite (Negative) Urine Bilirubin (Negative) Urine Urobilinogen (0.2-1.0) Ur Leukocyte Esterase (Negative) Urine RBC (0-5) /hpf Urine WBC (0-5) /hpf Ur Epithelial Cells (0-5) /hpf Urine Bacteria (FEW) /hpf Urine Mucus (FEW) /hpf Influenza Type A RNA Negative (NEGATIVE) Influenza Type B RNA Negative (NEGATIVE) SARS-CoV-2 RNA (JULIO CESAR) Negative (NEGATIVE) 12/21/20 12/21/20 Range/Units 19:56 19:57 WBC (4.23-9.07) K/mm3 RBC (4.63-6.08) M/mm3 Hgb (13.7-17.5) gm/dl Hct (40.1-51.0) % MCV (79.0-92.2) fl MCH (25.7-32.2) pg MCHC (32.2-35.5) g/dl RDW Std Deviation (35.1-43.9) fL Plt Count (163-337) K/mm3 MPV (9.4-12.3) fl Neutrophils % (Manual) (40-60) % Band Neutrophils % (0-10) % Lymphocytes % (Manual) (20-40) % Atypical Lymphs % % Monocytes % (Manual) (2-10) % Eosinophils % (Manual) (0.8-7.0) % Basophils % (Manual) (0.2-1.2) Platelet Estimate Hypochromasia Microcytosis RBC Morph Comment D-Dimer, Quantitative 1.11 H (0.19-0.50) mg/L Sodium (136-145) mEq/L Potassium (3.5-5.1) mEq/L Chloride (98-107) mEq/L Carbon Dioxide (21-32) mEq/L Anion Gap (5-15) BUN (7-18) mg/dL Creatinine (0.7-1.3) mg/dL Est Cr Clr Drug Dosing mL/min Estimated GFR (MDRD) (>60) mL/min BUN/Creatinine Ratio (14-18) Glucose (83-115) mg/dL Calcium (8.5-10.1) mg/dL Magnesium (1.8-2.4) mg/dl Total Bilirubin (0.2-1.0) mg/dL AST (15-37) U/L ALT (16-63) U/L Alkaline Phosphatase (46-116) U/L Troponin I (0.00-0.056) ng/mL Total Protein (6.4-8.2) g/dl Albumin (3.4-5.0) g/dl Globulin gm/dL Albumin/Globulin Ratio (1-2) TSH 3rd Generation (0.358-3.74) uIU/mL Urine Color Light yellow (Yellow) Urine Appearance Clear (Clear) Urine pH 6.5 (5.0-8.0) Ur Specific [place] 1.015 (1.005-1.030) Urine Protein 1+ H (Negative) Urine Glucose (UA) Negative (Negative) Urine Ketones Negative (Negative) Urine Occult Blood 2+ H (Negative) Urine Nitrite Negative (Negative) Urine Bilirubin Negative (Negative) Urine Urobilinogen 0.2 (0.2-1.0) Ur Leukocyte Esterase 1+ H (Negative) Urine RBC 0-5 (0-5) /hpf Urine WBC 0-5 (0-5) /hpf Ur Epithelial Cells 0-5 (0-5) /hpf Urine Bacteria Not seen (FEW) /hpf Urine Mucus Not seen (FEW) /hpf Influenza Type A RNA (NEGATIVE) Influenza Type B RNA (NEGATIVE) SARS-CoV-2 RNA (JULIO CESAR) (NEGATIVE) - Re-Assessments/Exams Free Text/Narrative Re-Assessment/Exam: 12/21/20 19:40 As above, the patient states that he developed upper abdominal discomfort, not a pain, but enough to make him not feel very well, this past Friday, and that has been coming and going since. No other symptoms, although he notes that he felt his heart was racing around 17:30 this evening, although denies feeling that now. On examination, however, I find that the patient is tachycardic with an irregularly irregular heartbeat, consistent with atrial fibrillation. I have ordered a work-up that includes several blood tests, a urinalysis, a swab for the SARS-CoV-2 virus and influenza virus, a chest x-ray, and abdominal flatplate x-ray, and an ECG. I noticed that the patient's lower extremities were somewhat edematous. The patient stated that he has Lasix that he takes from time to time for edema, but that he has not taken any recently. I have ordered 40 mg of IV furosemide. 12/21/20 20:37 The patient's CBC is remarkable for a H/H slightly depressed at 11.9/35.3, with the remainder of his CBC being unremarkable. His CMP is remarkable for slight hyponatremia of 134. His anion gap is slightly elevated at 16.4, but with a bicarbonate normal at 24. His BUN/Cr are mildly elevated at 22/1.5, and he has mild hyperglycemia of 124, with the remainder of his CMP being unremarkable. His magnesium level is within normal limits at 1.9. His TSH is within normal limits at 3.651. His troponin is undetectably low. His D-dimer is elevated at 1.11. His urinalysis is unremarkable. Review of prior labs finds that the patient's BUN/Cr were 21/1.6 on 07/26/2020. Based on the above, I have ordered a CT angiogram of the chest to evaluate for a PE. Due to the patient likely being fluid overloaded, I have not ordered IV fluid. 12/21/20 21:20 2-view chest radiograph is read by Dr. Rao as: 1. Possible minimal CHF. 2. Emphysematous change. 3. Other findings as noted above. Flat plate abdominal radiograph is read by Dr. Rao as: 1. Findings as noted above. Nothing acute is seen. The patient's swab for the SARS-CoV-2 virus and influenza viruses has returned negative for all. 12/21/20 21:53 CT angiogram of the chest is read by [facility] as: No acute findings. Cardiomegaly 12/21/20 22:00 Test results discussed with the patient and his daughter, who is now at the bedside. I suspect that the patient's symptoms of not feeling well since Friday are due to his going into atrial fibrillation. He is already on a number of medications to control his heart rate when he goes into atrial fibrillation, although he is not on an anticoagulant, however, as above, the patient had previously been prescribed an anticoagulant when he was initially found to be in atrial fibrillation on 07/18/2019, and is PCP discontinued it, therefore I do not see a reason to restart it now. On the discharge summary from his 07/18/2019 admission, there was some concern that he may have underlying obstructive sleep apnea, and they recommended that he get tested for, but the patient tells me that he never did. I explained that obstructive sleep apnea can lead to physical changes in the heart that can cause atrial fibrillation, and perhaps that is why he has paroxysmal atrial fibrillation, however, I will leave the decision as to whether or not he should undergo a sleep study to his PCP. I do not see an indication for admission to the hospital, therefore I will discharge him home. All questions were answered, and both the patient and his daughter are agreeable. Departure - Departure Time of Disposition: 22:03 Disposition: Home, Self-Care 01 Condition: Good Clinical Impression: Paroxysmal atrial fibrillation, Chronic renal insufficiency - Discharge Information *PRESCRIPTION DRUG MONITORING PROGRAM REVIEWED*: Not Applicable *COPY OF PRESCRIPTION DRUG MONITORING REPORT IN PATIENT MELVINA: Not Applicable Referrals: Jonatan Dumas PA-C [Primary Care Provider] - Forms: ED Department Discharge Additional Instructions: You were seen in the emergency room after experiencing intermittent upper abdominal pain since 12/17/2020. Work-up in the ER included numerous blood tests, a urinalysis, a swab for the SARS-CoV-2 virus and influenza viruses, a chest x-ray, and x-ray of your abdomen, a CT angiogram of your chest, and an ECG. Your ECG found you to be in atrial fibrillation. Your blood work showed your kidney function to be impaired, although no different from last year. The remainder of your work-up was unremarkable. Based on your history, physical exam, and ER tests, your abdominal discomfort is most likely related to your going into and out of atrial fibrillation. You are already on medications to control your heart rate when you are in atrial fibrillation. In many cases, patients who have atrial fibrillation are also on a blood thinner, however, you were prescribed a blood thinner in 2019, and your PCP discontinued it, therefore we did not restart a blood thinner during this ER visit. We recommend that you continue to take your usually prescribed medications. We recommend that you follow-up with your PCP, CAT Mendez, at the next available appointment, for further evaluation and review of medications. If any other problems, please do not hesitate to return to the ER. Sepsis Event Note (ED) - Evaluation Sepsis Screening Result: No Definite Risk - Focused Exam Vital Signs: Vital Signs Temp Pulse Resp BP Pulse Ox 12/21/20 19:19 185/74 H 12/21/20 19:12 36.2 C 84 19 98 - My Orders Last 24 Hours: My Active Orders 12/21/20 19:38 EKG Documentation Completion [RC] STAT 12/21/20 20:36 Ang Chest [CT] Stat 12/21/20 21:15 Sodium Chloride 0.9% [Saline Flush] 10 ml FLUSH ONETIME PRN - Assessment/Plan Last 24 Hours: My Active Orders 12/21/20 19:38 EKG Documentation Completion [RC] STAT 12/21/20 20:36 Ang Chest [CT] Stat 12/21/20 21:15 Sodium Chloride 0.9% [Saline Flush] 10 ml FLUSH ONETIME PRN
[2020-12-21 20:44] LABS: CORONAVIRUS COVID-19 NAA NEGATIVE (NEGATIVE)
--- NOTE | 2020-12-21 21:07 | CR ---
Chest: PA and lateral views of the chest were obtained. Comparison: Prior chest x-ray of 03/28/20. Heart is enlarged. Pulmonary vessels are felt to be slightly congested. Diaphragms are flattened compatible with emphysematous change. Slight scarring is noted within both posterior lungs. Previous sternotomy is noted. Prosthetic heart valves are seen. Impression: 1. Possible minimal CHF. 2. Emphysematous change. 3. Other findings as noted above. Diagnostic code #3
--- NOTE | 2020-12-21 21:07 | CR ---
Abdomen: Supine view the abdomen was obtained. Scattered bowel gas is seen which appears to be within normal limits. Scattered degenerative change is seen within the spine. Mild vascular calcification is seen. No discrete soft tissue abnormality is appreciated. Previous cholecystectomy is noted. Slight prostate calcifications are seen. Impression: 1. Findings as noted above. Nothing acute is seen. Diagnostic code #2
[2020-12-21] MEDS ORDERED: Sodium Chloride 0.9% 100 ML IV ONE (21:15)
[2020-12-21] MEDS ORDERED: Iopamidol 755 Mg/ML 100 ML Bottle IVPUSH ONE (21:15)
[2020-12-21] MEDS ORDERED: Sodium Chloride 0.9% 10 ML Syringe FLUSH PRN (21:15)
[2020-12-21 22:26] VITALS: BP 138/87; PULSE 101
--- NOTE | 2020-12-22 07:21 | CT ---
CT chest Technique: Multiple axial sections through the chest were obtained. Study was performed as a pulmonary angiogram protocol and intravenous contrast was utilized. Comparison: No prior chest CT is available. Prior chest x-ray performed earlier on the same date is available (8:10 PM). Findings: Pulmonary arteries are well-opacified. No filling defects are seen to indicate pulmonary embolism. Thoracic aorta shows diffuse atherosclerotic change. No aneurysm is appreciated. Mediastinum and hilar region show normal lymph nodes without adenopathy. No pericardial thickening is seen. No axillary adenopathy is appreciated. No pericardial thickening is seen. Heart is mildly enlarged. Upper abdominal structures shows a small hiatal hernia. Pleural calcification is seen on the right side. Lung window settings were reviewed which show a nodule within the right middle lobe which appears partially calcified. Nodule measures approximately 8 mm. No other nodule or densities are noted. Minimal scarring is seen within the right lung base. Minimal scarring is noted within other portions of the chest. Bone window settings were reviewed. Scattered disc space narrowing and endplate spurring is noted within the spine. Previous sternotomy is noted. Impression: 1. No findings of pulmonary embolism. 2. Other findings as noted above which are felt to be nonacute. 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
== END 2020-12-21 22:20 | disposition home or self-care (01) ==
LOC: JD.ED 19:07
DX: I48.0 Paroxysmal atrial fibrillation (principal); E78.00 Pure hypercholesterolemia, unspecified; I12.9 Hypertensive chronic kidney disease with stage 1 through stage 4 chronic kidney disease, or unspecified chronic kidney disease; N18.9 Chronic kidney disease, unspecified; K21.9 Gastro-esophageal reflux disease without esophagitis; E03.9 Hypothyroidism, unspecified; Z86.73 Personal history of transient ischemic attack (TIA), and cerebral infarction without residual deficits; Z79.899 Other long term (current) drug therapy; Z87.891 Personal history of nicotine dependence; Z20.822 Contact with and (suspected) exposure to COVID-19
CPT/HCPCS: 0240U; 36415; 71046; 71275; 74018; 80053; 81001; 83735; 84443; 84484; 85007; 85027; 85379; 93005; 96374; 99285; J1940; Q9967; 93010; 99284

== ENCOUNTER 2023-01-06 09:43 | Emergency (ER) | payer MEDICARE, MEDICAID ==
[2023-01-06 09:57] VITALS: PULSE 55
[2023-01-06] MEDS ORDERED: Sodium Chloride 0.9% 10 ML Syringe FLUSH ONE (12:39)
[2023-01-06] MEDS ORDERED: Iopamidol 755 Mg/ML 100 ML Bottle IVPUSH ONE (12:39)
[2023-01-06] MEDS ORDERED: Sodium Chloride 0.9% 100 ML IV SCH (12:45)
[2023-01-06 12:50] LABS: CORONAVIRUS COVID-19 NAA NEGATIVE (NEGATIVE)
[2023-01-06] MEDS ORDERED: Furosemide 40 MG/4 ML VIAL IVPUSH ONE (14:05)
[2023-01-06 18:33] VITALS: BP 141/76
== END 2023-01-06 15:10 | disposition home or self-care (01) ==
LOC: JD.ED 09:43
DX: I11.0 Hypertensive heart disease with heart failure (principal); I50.9 Heart failure, unspecified; K21.9 Gastro-esophageal reflux disease without esophagitis; I48.91 Unspecified atrial fibrillation; Z87.891 Personal history of nicotine dependence; Z20.822 Contact with and (suspected) exposure to COVID-19; Z79.899 Other long term (current) drug therapy
CPT/HCPCS: 0241U; 36415; 71046; 71275; 80053; 83880; 84484; 85025; 85379; 87040; 93005; 96374; 99285; J1940; J3490; Q9967

== ENCOUNTER 2025-05-08 10:15 | Inpatient (IN) | payer MEDICARE, MEDICAID ==
[2025-05-08 10:30] LABS: BASOPHILS ABSOLUTE AUTO 0.0 K/mm3 (0.0-0.2); BASOPHILS PERCENT AUTO 0.2 % (0.0-1.0); EOSINOPHILS ABSOLUTE AUTO 0.0 K/mm3 (0.0-0.4); EOSINOPHILS PERCENT AUTO 0.7 % (0.0-6.0); IMMATURE GRAN ABSOLUTE AUTO 0.02 K/mm3 (0.00-0.05); IMMATURE GRAN PERCENT AUTO 0.5 % (0.0-0.4); LYMPHOCYTES ABSOLUTE AUTO 0.3 K/mm3 (1.0-4.8); LYMPHOCYTES PERCENT AUTO 7.5 % (24.0-44.0); MEAN PLATELET VOLUME 8.8 fl (9.4-12.4); MONOCYTES ABSOLUTE AUTO 0.5 K/mm3 (0.0-0.8); MONOCYTES PERCENT AUTO 10.2 % (0.0-8.0); NEUTROPHILS ABSOLUTE AUTO 3.6 K/mm3 (1.8-7.7); NEUTROPHILS PERCENT AUTO 80.9 % (41.0-71.0); NRBC ABSOLUTE 0.00 (0.00-0.02); NRBC PERCENT 0.0 % (0.0-0.2); PLATELET COUNT,PLT 158 K/mm3 (150-400); RED BLOOD CELL COUNT 3.16 M/mm3 (4.52-5.90); WHITE BLOOD CELL COUNT,WBC 4.40 K/mm3 (3.9-11.3)
[2025-05-08 10:45] LABS: INR 1.07
[2025-05-08] MEDS: Furosemide 40 MG/4 ML VIAL IVPUSH ONE ×2 (10:48→16:32)
[2025-05-08 11:14] LABS: A/G RATIO 1.0 (1-2); ALANINE AMINOTRANSFERASE,ALT 13 U/L (16-63); ASPARTATE AMNIOTRANSFERASE,AST 11 U/L (15-37); BILIRUBIN TOTAL 0.4 mg/dL (0.2-1.0); BLOOD UREA NITROGEN,BUN 40 mg/dL (7-18); CARBON DIOXIDE,CO2 29 mEq/L (21-32); CHLORIDE,CL 97 mEq/L (98-107); CREATINE KINASE,CK 13 U/L (39-308); CREATININE 2.7 mg/dL (0.7-1.3); ESTIMATED GFR 22 mL/min (>60); GLUCOSE RANDOM 102 mg/dL (70-99); POTASSIUM,K 4.9 mEq/L (3.5-5.1); PROTEIN TOTAL,TP 6.3 g/dl (6.4-8.2); SODIUM,NA 133 mEq/L (136-145); TROPONIN I HIGH SENSITIVITY 16 pg/mL (<=76)
[2025-05-08 19:36] LABS: TSH 5.502 uIU/mL (0.358-3.74)
[2025-05-08 19:56] LABS: T4 FREE 1.08 ng/dL (0.76-1.46)
[2025-05-09] MEDS: Furosemide 40 MG/4 ML VIAL IVPUSH SCH (05:59)
[2025-05-09 06:15] LABS: BASOPHILS ABSOLUTE AUTO 0.0 K/mm3 (0.0-0.2); BASOPHILS PERCENT AUTO 0.2 % (0.0-1.0); EOSINOPHILS ABSOLUTE AUTO 0.1 K/mm3 (0.0-0.4); EOSINOPHILS PERCENT AUTO 1.4 % (0.0-6.0); IMMATURE GRAN ABSOLUTE AUTO 0.02 K/mm3 (0.00-0.05); IMMATURE GRAN PERCENT AUTO 0.5 % (0.0-0.4); LYMPHOCYTES ABSOLUTE AUTO 0.4 K/mm3 (1.0-4.8); LYMPHOCYTES PERCENT AUTO 9.0 % (24.0-44.0); MEAN PLATELET VOLUME 8.9 fl (9.4-12.4); MONOCYTES ABSOLUTE AUTO 0.5 K/mm3 (0.0-0.8); MONOCYTES PERCENT AUTO 12.5 % (0.0-8.0); NEUTROPHILS ABSOLUTE AUTO 3.2 K/mm3 (1.8-7.7); NEUTROPHILS PERCENT AUTO 76.4 % (41.0-71.0); NRBC ABSOLUTE 0.00 (0.00-0.02); NRBC PERCENT 0.0 % (0.0-0.2); PLATELET COUNT,PLT 144 K/mm3 (150-400); RED BLOOD CELL COUNT 2.92 M/mm3 (4.52-5.90); WHITE BLOOD CELL COUNT,WBC 4.23 K/mm3 (3.9-11.3)
[2025-05-09 07:00] LABS: BLOOD UREA NITROGEN,BUN 37.0 mg/dL (7-18); CARBON DIOXIDE,CO2 30.0 mEq/L (21-32); CHLORIDE,CL 99.0 mEq/L (98-107); CREATININE 2.4 mg/dL (0.7-1.3); EST CRCL DRUG DOSING (CG) 19.51 mL/min; ESTIMATED GFR 25.0 mL/min (>60); GLUCOSE RANDOM 84.0 mg/dL (70-99); POTASSIUM,K 4.7 mEq/L (3.5-5.1); SODIUM,NA 133.0 mEq/L (136-145)
[2025-05-09 07:44] LABS: IRON,FE 17 ug/dL (65-175); PERCENT FE SATURATION 6 % (20-55)
[2025-05-09] MEDS: Heparin Sodium 5,000 Units/ML Vial SUBCUT SCH (09:54)
[2025-05-09] MEDS: Sodium Ferric Gluconate Cmplex 125 MG in Sodium Chloride 0.9% 100 ML IV ONE (14:48)
[2025-05-10 04:29] LABS: BASOPHILS ABSOLUTE AUTO 0.0 K/mm3 (0.0-0.2); BASOPHILS PERCENT AUTO 0.2 % (0.0-1.0); EOSINOPHILS ABSOLUTE AUTO 0.0 K/mm3 (0.0-0.4); EOSINOPHILS PERCENT AUTO 0.9 % (0.0-6.0); IMMATURE GRAN ABSOLUTE AUTO 0.02 K/mm3 (0.00-0.05); IMMATURE GRAN PERCENT AUTO 0.4 % (0.0-0.4); LYMPHOCYTES ABSOLUTE AUTO 0.4 K/mm3 (1.0-4.8); LYMPHOCYTES PERCENT AUTO 8.4 % (24.0-44.0); MEAN PLATELET VOLUME 9.0 fl (9.4-12.4); MONOCYTES ABSOLUTE AUTO 0.6 K/mm3 (0.0-0.8); MONOCYTES PERCENT AUTO 12.6 % (0.0-8.0); NEUTROPHILS ABSOLUTE AUTO 3.5 K/mm3 (1.8-7.7); NEUTROPHILS PERCENT AUTO 77.5 % (41.0-71.0); NRBC ABSOLUTE 0.00 (0.00-0.02); NRBC PERCENT 0.0 % (0.0-0.2); PLATELET COUNT,PLT 151 K/mm3 (150-400); RED BLOOD CELL COUNT 2.96 M/mm3 (4.52-5.90); WHITE BLOOD CELL COUNT,WBC 4.51 K/mm3 (3.9-11.3)
[2025-05-10 04:52] LABS: BLOOD UREA NITROGEN,BUN 42.0 mg/dL (7-18); CARBON DIOXIDE,CO2 28.0 mEq/L (21-32); CHLORIDE,CL 98.0 mEq/L (98-107); CREATININE 2.7 mg/dL (0.7-1.3); EST CRCL DRUG DOSING (CG) 17.34 mL/min; ESTIMATED GFR 22.0 mL/min (>60); GLUCOSE RANDOM 88.0 mg/dL (70-99); PHOSPHORUS 4.3 mg/dL (2.6-4.7); POTASSIUM,K 4.7 mEq/L (3.5-5.1); SODIUM,NA 133.0 mEq/L (136-145)
[2025-05-10] MEDS: Furosemide 40 MG/4 ML VIAL IVPUSH SCH (14:41)
[2025-05-11 04:23] LABS: BASOPHILS ABSOLUTE AUTO 0.0 K/mm3 (0.0-0.2); BASOPHILS PERCENT AUTO 0.2 % (0.0-1.0); EOSINOPHILS ABSOLUTE AUTO 0.1 K/mm3 (0.0-0.4); EOSINOPHILS PERCENT AUTO 1.4 % (0.0-6.0); IMMATURE GRAN ABSOLUTE AUTO 0.01 K/mm3 (0.00-0.05); IMMATURE GRAN PERCENT AUTO 0.2 % (0.0-0.4); LYMPHOCYTES ABSOLUTE AUTO 0.4 K/mm3 (1.0-4.8); LYMPHOCYTES PERCENT AUTO 8.2 % (24.0-44.0); MEAN PLATELET VOLUME 9.2 fl (9.4-12.4); MONOCYTES ABSOLUTE AUTO 0.7 K/mm3 (0.0-0.8); MONOCYTES PERCENT AUTO 13.3 % (0.0-8.0); NEUTROPHILS ABSOLUTE AUTO 3.9 K/mm3 (1.8-7.7); NEUTROPHILS PERCENT AUTO 76.7 % (41.0-71.0); NRBC ABSOLUTE 0.00 (0.00-0.02); NRBC PERCENT 0.0 % (0.0-0.2); PLATELET COUNT,PLT 149 K/mm3 (150-400); RED BLOOD CELL COUNT 2.94 M/mm3 (4.52-5.90); WHITE BLOOD CELL COUNT,WBC 5.02 K/mm3 (3.9-11.3)
[2025-05-11 04:55] LABS: BLOOD UREA NITROGEN,BUN 44.0 mg/dL (7-18); CARBON DIOXIDE,CO2 30.0 mEq/L (21-32); CHLORIDE,CL 97.0 mEq/L (98-107); CREATININE 2.6 mg/dL (0.7-1.3); EST CRCL DRUG DOSING (CG) 18.01 mL/min; ESTIMATED GFR 23.0 mL/min (>60); GLUCOSE RANDOM 95.0 mg/dL (70-99); POTASSIUM,K 4.5 mEq/L (3.5-5.1); SODIUM,NA 134.0 mEq/L (136-145)
[2025-05-12 04:29] LABS: BASOPHILS ABSOLUTE AUTO 0.0 K/mm3 (0.0-0.2); BASOPHILS PERCENT AUTO 0.4 % (0.0-1.0); EOSINOPHILS ABSOLUTE AUTO 0.1 K/mm3 (0.0-0.4); EOSINOPHILS PERCENT AUTO 1.4 % (0.0-6.0); IMMATURE GRAN ABSOLUTE AUTO 0.02 K/mm3 (0.00-0.05); IMMATURE GRAN PERCENT AUTO 0.4 % (0.0-0.4); LYMPHOCYTES ABSOLUTE AUTO 0.4 K/mm3 (1.0-4.8); LYMPHOCYTES PERCENT AUTO 8.0 % (24.0-44.0); MEAN PLATELET VOLUME 8.9 fl (9.4-12.4); MONOCYTES ABSOLUTE AUTO 0.7 K/mm3 (0.0-0.8); MONOCYTES PERCENT AUTO 13.0 % (0.0-8.0); NEUTROPHILS ABSOLUTE AUTO 3.8 K/mm3 (1.8-7.7); NEUTROPHILS PERCENT AUTO 76.8 % (41.0-71.0); NRBC ABSOLUTE 0.00 (0.00-0.02); NRBC PERCENT 0.0 % (0.0-0.2); PLATELET COUNT,PLT 151 K/mm3 (150-400); RED BLOOD CELL COUNT 2.94 M/mm3 (4.52-5.90); WHITE BLOOD CELL COUNT,WBC 5.00 K/mm3 (3.9-11.3)
[2025-05-12 04:43] LABS: BLOOD UREA NITROGEN,BUN 45.0 mg/dL (7-18); CARBON DIOXIDE,CO2 32.0 mEq/L (21-32); CHLORIDE,CL 96.0 mEq/L (98-107); CREATININE 2.6 mg/dL (0.7-1.3); EST CRCL DRUG DOSING (CG) 18.01 mL/min; ESTIMATED GFR 23.0 mL/min (>60); GLUCOSE RANDOM 91.0 mg/dL (70-99); POTASSIUM,K 4.4 mEq/L (3.5-5.1); SODIUM,NA 134.0 mEq/L (136-145)
[2025-05-13 04:24] LABS: BASOPHILS ABSOLUTE AUTO 0.0 K/mm3 (0.0-0.2); BASOPHILS PERCENT AUTO 0.2 % (0.0-1.0); EOSINOPHILS ABSOLUTE AUTO 0.1 K/mm3 (0.0-0.4); EOSINOPHILS PERCENT AUTO 1.9 % (0.0-6.0); IMMATURE GRAN ABSOLUTE AUTO 0.02 K/mm3 (0.00-0.05); IMMATURE GRAN PERCENT AUTO 0.4 % (0.0-0.4); LYMPHOCYTES ABSOLUTE AUTO 0.5 K/mm3 (1.0-4.8); LYMPHOCYTES PERCENT AUTO 8.7 % (24.0-44.0); MEAN PLATELET VOLUME 8.9 fl (9.4-12.4); MONOCYTES ABSOLUTE AUTO 0.7 K/mm3 (0.0-0.8); MONOCYTES PERCENT AUTO 12.3 % (0.0-8.0); NEUTROPHILS ABSOLUTE AUTO 4.1 K/mm3 (1.8-7.7); NEUTROPHILS PERCENT AUTO 76.5 % (41.0-71.0); NRBC ABSOLUTE 0.00 (0.00-0.02); NRBC PERCENT 0.0 % (0.0-0.2); PLATELET COUNT,PLT 153 K/mm3 (150-400); RED BLOOD CELL COUNT 2.90 M/mm3 (4.52-5.90); WHITE BLOOD CELL COUNT,WBC 5.38 K/mm3 (3.9-11.3)
[2025-05-13 04:54] LABS: BLOOD UREA NITROGEN,BUN 46.0 mg/dL (7-18); CARBON DIOXIDE,CO2 32.0 mEq/L (21-32); CHLORIDE,CL 95.0 mEq/L (98-107); CREATININE 2.3 mg/dL (0.7-1.3); EST CRCL DRUG DOSING (CG) 20.36 mL/min; ESTIMATED GFR 26.0 mL/min (>60); GLUCOSE RANDOM 88.0 mg/dL (70-99); POTASSIUM,K 4.3 mEq/L (3.5-5.1); SODIUM,NA 132.0 mEq/L (136-145)
[2025-05-13 11:41] VITALS: BP 123/55; PULSE 75
== END 2025-05-13 13:45 | disposition home or self-care (01) | DRG 291 ==
LOC: JD.ED 10:15 → JD.MS 11:40
PROVIDERS: ADMIT Family Medicine; ATTEND Student in an Organized Health Care Education/Training Program
DX: I13.0 Hypertensive heart and chronic kidney disease with heart failure and stage 1 through stage 4 chronic kidney disease, or unspecified chronic kidney disease (principal); I50.43 Acute on chronic combined systolic (congestive) and diastolic (congestive) heart failure; D64.89 Other specified anemias; J96.01 Acute respiratory failure with hypoxia; N17.9 Acute kidney failure, unspecified; N18.9 Chronic kidney disease, unspecified; N18.4 Chronic kidney disease, stage 4 (severe); E87.1 Hypo-osmolality and hyponatremia; I48.91 Unspecified atrial fibrillation; H91.90 Unspecified hearing loss, unspecified ear; H54.7 Unspecified visual loss; E78.00 Pure hypercholesterolemia, unspecified; G47.30 Sleep apnea, unspecified; K21.9 Gastro-esophageal reflux disease without esophagitis; M19.011 Primary osteoarthritis, right shoulder; M19.012 Primary osteoarthritis, left shoulder; D64.9 Anemia, unspecified; E03.9 Hypothyroidism, unspecified; I27.20 Pulmonary hypertension, unspecified; I44.7 Left bundle-branch block, unspecified; Z79.890 Hormone replacement therapy; Z79.899 Other long term (current) drug therapy; Z86.73 Personal history of transient ischemic attack (TIA), and cerebral infarction without residual deficits; Z95.3 Presence of xenogenic heart valve; Z90.49 Acquired absence of other specified parts of digestive tract; Z98.890 Other specified postprocedural states; Z86.14 Personal history of Methicillin resistant Staphylococcus aureus infection
CPT/HCPCS: 36415; 71045; 80053; 82550; 83690; 83735; 83880; 84439; 84443; 84484; 85025; 85610; 93005; 96374; 99285; J1938; 80048; 82728; 83540; 84100; 84466; 93010; 93306; 94761; 97110-GO; 97110-GP; 97112-GP; 97116-GP; 97161-GP; 97166-GO; 97530-GO; 97530-GP; A9270-GY; J1644; J2916